=== PATIENT | male | born 1935 | race Caucasian/White ===

== ENCOUNTER 2020-03-28 19:36 | Inpatient (IN) | payer OTHER ==
--- NOTE | 2020-03-28 20:31 | PDOC ---
History of Present Illness - General Chief Complaint: Blood Sugar Problem Stated Complaint: LATHARGIC/ ELEVATED BLOOD SUGAR Time Seen by Provider: 03/28/20 20:30 - History of Present Illness Initial Comments: 03/28/20 20:44 84 M with DM on metformin referred to the ED from Dr. Tai for inpatient admission for concerning of abnormal lab. PCP blooddraw revealed increased WBC, high blood sugar. He endorsed fatigue, pre syncope, SOB, decreased appetite, weight lost 18 lbs over two weeks, nausea, chest pain, abdominal pain, nails changes. . Denies diarrehea, constipation, unilat leg swelling, blood in stool, hematuria. PMH: DM PSH: appendectomy SS: past smokers for 30 years, occasional alcohol, denies drug. PCP: Rosh. JAMES GENERAL/CONSTITUTIONAL: No fever or chills. No weakness. HEAD, EYES, EARS, NOSE AND THROAT: No change in vision. No ear pain or discharge. No sore throat. CARDIOVASCULAR: + chest pain + shortness of breath RESPIRATORY: No cough, wheezing, or hemoptysis. GASTROINTESTINAL: + nausea, no vomiting, diarrhea or constipation. GENITOURINARY: No dysuria, frequency, or change in urination. MUSCULOSKELETAL: No joint or muscle swelling or pain. No neck or back pain. SKIN: No rash NEUROLOGIC: No headache, + vertigo, no loss of consciousness, or change in strength/sensation. ENDOCRINE: No increased thirst. + abnormal weight change HEMATOLOGIC/LYMPHATIC: No anemia, easy bleeding, or history of blood clots. ALLERGIC/IMMUNOLOGIC: No hives or skin allergy. PE GENERAL: Awake, alert, and fully oriented, in no acute distress HEAD: No signs of trauma, normocephalic, atraumatic EYES: PERRLA, EOMI, sclera anicteric, conjunctiva clear ENT: Auricles normal inspection, hearing grossly normal, nares patent, oropharynx clear without exudates. Moist mucosa NECK: Normal ROM, supple, no lymphadenopathy, JVD, or masses LUNGS: No distress, speaks full sentences, clear to auscultation bilaterally HEART: Regular rate and rhythm, normal S1 and S2, no murmurs, rubs or gallops, peripheral pulses normal and equal bilaterally. ABDOMEN: Soft, mild tender on lower quadrants, protrubing but nondistended , normoactive bowel sounds. No guarding, no rebound. No masses EXTREMITIES : Normal inspection, Normal range of motion, no edema. No clubbing or cyanosis. NEUROLOGICAL: Cranial nerves II through XII grossly intact. Normal speech, normal gait, no focal sensorimotor deficits SKIN: Warm, Dry, normal turgor, no rashes or lesions noted. pale. 03/28/20 21:03 Past History - Medical History Allergies/Adverse Reactions: Allergies Allergy/AdvReac Type Severity Reaction Status Date / Time No Known Drug Allergies Allergy Verified 08/23/15 07:58 Home Medications: Ambulatory Orders metFORMIN HCL [Glucophage -] 500 mg PO BID 02/04/12 Aspirin [ASA -] 81 mg PO HS 04/27/14 Cyanocobalamin [Vitamin B12 -] 1 tab PO HS 04/27/14 Acetaminophen [Tylenol] 325 mg PO PRN PRN 04/30/14 Omeprazole [Prilosec] 20 mg PO BID 08/22/15 Anemia: Yes Asthma: No Cancer: No Cardiac Disorders: No CVA: No COPD: No CHF: No Dementia: No Diabetes: Yes (NIDDM) GI Disorders: No Disorders: No HTN: No Hypercholesterolemia: No Liver Disease: No Seizures: No Thyroid Disease: No - Surgical History Abdominal Surgery: Yes (UMBILICAL HERNIA) Appendectomy: Yes Cardiac Surgery: No Cholecystectomy: No Lung Surgery: No Neurologic Surgery: No Orthopedic Surgery: No - Psycho-Social/Smoking History Smoking History: Former smoker Have you smoked in the past 12 months: No If you are a former smoker, when did you quit?: 25 Information on smoking cessation initiated: No - Substance Abuse Hx (Audit-C & DAST Scrn) How often the patient has a drink containing alcohol: Never Score: In Men: 4 or > Positive; In Women: 3 or > Positive: 0 Screen Result (Pos requires Nsg. Audit-10AR): Negative In the last yr the pt used illegal drug/Rx for NonMed reason: No Score: Yes response is considered Positive: 0 Screen Result (Positive result requires Nsg. DAST-10): Negative *Physical Exam - Vital Signs Last Vital Signs Temp Pulse Resp BP Pulse Ox 98.5 F 82 19 153/62 92 L 03/28/20 19:39 03/28/20 19:39 03/28/20 19:39 03/28/20 19:39 03/28/20 19:39 ED Treatment Course - LABORATORY CBC & Chemistry Diagram: 03/28/20 22:06 03/28/20 22:06 Medical Decision Making - Medical Decision Making 03/29/20 01:30 -initially concerning for pancreatic cancer -EKG: normal sinus rhthym, vent rate 79, QTc 454. -repeated labwork which showed elevated WBC with left shift, high Blood sugar, Cr 1.4. -CT scan showed acute sigmoid diverticulis with intramural abscess [id number], no perforation, no obstruction. -consulted Gen surg Dr. Reyes. Plan is NPO, fluid, antibiotic. -MBMD sent. Decision to admit sent. 03/29/20 01:34 03/29/20 04:[address] Pasrtana. Discharge - Discharge Information Problems reviewed: Yes Clinical Impression/Diagnosis: Diverticulitis Condition: Good - Admission Yes - Follow up/Referral Referrals: Rosalino Norris MD [Primary Care Provider] - - Patient Discharge Instructions - Post Discharge Activity
[2020-03-28 21:55] LABS: URINE APPEARANCE CLEAR; URINE BILIRUBIN NEGATIVE (NEGATIVE); URINE COLOR YELLOW; URINE GLUCOSE (UA) 3+ (NEGATIVE); URINE KETONE TRACE (NEGATIVE); URINE LEUK ESTERASE NEGATIVE (NEGATIVE); URINE NITRITE NEGATIVE (NEGATIVE); URINE PROTEIN TRACE (NEGATIVE); URINE UROBILINOGEN 0.2 mg/dL (0.2-1.0)
--- NOTE | 2020-03-28 22:06 | PDOC ---
Documentation entered by Jewel Garcia SCRIBE, acting as scribe for Kareem Willams MD. Kareem Willams MD: This documentation has been prepared by the Radha lucas Xhesika, SCRIBE, under my direction and personally reviewed by me in its entirety. I confirm that the documentation accurately reflects all work, treatment, procedures, and medical decision making performed by me. Attending Attestation - Resident Resident Name: Girish Gilmore - ED Attending Attestation I have performed the following: I have examined & evaluated the patient, The case was reviewed & discussed with the resident, I agree w/resident's findings & plan, Exceptions are as noted - HPI HPI: 03/28/20 20:53 The patient is a 84y/o M with a pmh of DM (on metformin) who presents to the ED sent by Dr. Norris for admission for abnormal lab. Pt had outpatient lab work done, which showed an increased WBC and high blood sugar. Pt reports feeling fatigued, nausea, abdominal pain, chest pain and SOB. Pt reports decreased appetite and has lost 18 lbs over two weeks. Pt spoke with his PMD Dr. Norris, who instructed him to come to hospital for admission. The patient denies headache and dizziness. Denies fever, chills, cough, vomiting, diarrhea and constipation. Denies dysuria, frequency, urgency and hematuria. Allergies:NKDA PCP: Rito Gaines - Physicial Exam PE: 03/28/20 22:06 See resident exam - Medical Decision Making 03/28/20 22:07 84 M with weakness, chest pain, abnormal labwork. - Labs - CXR - Admit CT shows sigmoid abscess Surgery consulted Discharge - Discharge Information Problems reviewed: Yes Clinical Impression/Diagnosis: Diverticulitis Condition: Improved Disposition: HOME - Follow up/Referral - Patient Discharge Instructions - Post Discharge Activity
[2020-03-28 22:25] LABS: BASO % 0.6 % (0-2.0); EOS % 0.6 % (0-4.5); HEMATOCRIT 34.1 % (35.4-49); HEMOGLOBIN 10.9 GM/dL (11.7-16.9); MCHC 32.1 g/dl (32.0-35.9); MEAN CELL VOLUME 93.6 fl (80-96); MEAN PLT VOLUME 10.3 fl (7.5-11.1); MONO % 4.3 % (3.8-10.2); NEUT % 83.5 % (42.8-82.8); PLATELET COUNT 368 K/MM3 (134-434); RBC 3.64 M/mm3 (4.00-5.60); RDW 14.1 % (11.9-15.9); WHITE BLOOD COUNT 12.1 K/mm3 (4.0-10.0)
[2020-03-28 22:36] LABS: INR 1.04 (0.83-1.09); PROTHROMBIN TIME (PATIENT) 12.3 SEC (9.7-13.0)
[2020-03-28 22:39] LABS: ACTIVATED PTT 27.6 SECONDS (25.2-36.5)
[2020-03-28 22:55] LABS: CREATININE 1.4 mg/dL (0.55-1.3)
[2020-03-28 22:56] LABS: ALBUMIN 2.8 g/dl (3.4-5.0); BILIRUBIN,DIRECT 0.2 mg/dL (0.0-0.2); BILIRUBIN,TOTAL 0.6 mg/dL (0.2-1); BLOOD UREA NITROGEN 20.8 mg/dL (7-18); CALCIUM 8.7 mg/dL (8.5-10.1); MAGNESIUM 2.3 mg/dL (1.8-2.4); PHOSPHOROUS 2.1 mg/dL (2.5-4.9); POTASSIUM 4.6 mmol/L (3.5-5.1)
[2020-03-28] MEDS ORDERED: INSULIN REGULAR HUMAN 100 UNITS/ML *VIAL IVPUSH ONE (23:20)
[2020-03-28] MEDS ORDERED: LACTATED RINGERS SOLUTION 1000 ML INFUS.BAG IV ONE (23:30)
[2020-03-29] MEDS ORDERED: INSULIN REGULAR HUMAN 100 UNITS/ML *VIAL SQ ONE (00:26)
[2020-03-29] MEDS: INSULIN SLIDING SCALE (NOVOLOG) 1 VIAL SQ SCH ×5 (00:38→16:51)
[2020-03-29] MEDS ORDERED: PIPERACILLIN/TAZOB 4.5 GM 4.5 GM in DEXTROSE 5%-WATER 100 ML IVPB ONE (01:04)
[2020-03-29] MEDS ORDERED: PIPERACILLIN/TAZOB 4.5 GM 4.5 GM/100 ML BAG IVPB ONE (01:19)
--- NOTE | 2020-03-29 02:43 | PN ---
Teaching Attending Note Name of Resident: Melida Francis ATTENDING PHYSICIAN STATEMENT I saw and evaluated the patient. I reviewed the resident's note and discussed the case with the resident. I agree with the resident's findings and plan as documented. SUBJECTIVE: 84yoM with history of T2DM who was referred to the ED for evaluation of leukocytosis and hyperglycemia. Patient reports for the past two weeks he has had abdominal pain, poor oral intake, and fatigue. Believes he has lost about 20lb during that time but denies fever, chills, vomiting, diarrhea. He was evaluated by his PCP and found on labs to have leukocytosis and hyperglycemia and was referred to the ED. Denies prior history of diverticulitis. Patient was afebrile and hemodynamically stable in the ED. Labs notable for WBC 12.1, glucose 473. CT abd/pelvis showed acute sigmoid diverticulitis with intramural abscess. ED consulted surgery, Dr. Reyes, who recommended maintaining patient NPO, start antibiotics. Patient received Zosyn and is admitted for further management. ROS: (+) weight loss, poor appetite, abd pain, fatigue, nausea (-) fever, chills, cough, constipation, melena, hematochezia, dizziness, chest pain OBJECTIVE: Vital Signs - 24 hr 03/28/20 03/28/20 19:39 23:55 Temperature 98.5 F Pulse Rate 82 Pulse Rate [ 67 Left Radial] Respiratory 19 16 Rate Blood Pressure 153/62 Blood Pressure 145/56 L [Left Arm] O2 Sat by Pulse 92 L 97 Oximetry (%) EXAM Gen: Tired appearing elderly man in no acute distress HEENT: anicteric sclera CV: RRR, no MRG appreciated Resp: Occasional expiratory wheeze in upper lobes, no rales/rhonchi appreciated. Unlabored breathing Abd: Soft, mildly distended. Tender to palpation lower quadrants without rebound or guarding. Positive bowel sounds Ext: No edema Neuro: CN II-XII grossly intact. AOx3. Laboratory Results - last 24 hr 03/28/20 03/28/20 03/28/20 21:20 22:06 22:06 WBC 12.1 H RBC 3.64 L Hgb 10.9 L Hct 34.1 L MCV 93.6 MCH 30.0 MCHC 32.1 RDW 14.1 Plt Count 368 MPV 10.3 Absolute Neuts (auto) 10.1 H Neutrophils % 83.5 H Lymphocytes % 11.0 Monocytes % 4.3 Eosinophils % 0.6 Basophils % 0.6 Nucleated RBC % 0 PT with INR 12.30 INR 1.04 PTT (Actin FS) 27.6 Sodium Potassium Chloride Carbon Dioxide Anion Gap BUN Creatinine Est GFR (CKD-EPI)AfAm Est GFR (CKD-EPI)NonAf POC Glucometer Random Glucose Calcium Phosphorus Magnesium Total Bilirubin Direct Bilirubin AST ALT Alkaline Phosphatase Total Protein Albumin Lipase Urine Color Yellow Urine Appearance Clear Urine pH 5.0 Ur Specific [place] 1.036 H Urine Protein Trace Urine Glucose (UA) 3+ H Urine Ketones Trace H Urine Blood Negative Urine Nitrite Negative Urine Bilirubin Negative Urine Urobilinogen 0.2 Ur Leukocyte Esterase Negative 03/28/20 03/29/20 22:06 01:28 WBC RBC Hgb Hct MCV MCH MCHC RDW Plt Count MPV Absolute Neuts (auto) Neutrophils % Lymphocytes % Monocytes % Eosinophils % Basophils % Nucleated RBC % PT with INR INR PTT (Actin FS) Sodium 131 L Potassium 4.6 Chloride 96 L Carbon Dioxide 27 Anion Gap 8 BUN 20.8 H Creatinine 1.4 H Est GFR (CKD-EPI)AfAm 53.09 Est GFR (CKD-EPI)NonAf 45.81 POC Glucometer 383 Random Glucose 473 H* Calcium 8.7 Phosphorus 2.1 L Magnesium 2.3 Total Bilirubin 0.6 Direct Bilirubin 0.2 AST 14 L ALT 30 Alkaline Phosphatase 106 Total Protein 8.0 Albumin 2.8 L Lipase 131 Urine Color Urine Appearance Urine pH Ur Specific [place] Urine Protein Urine Glucose (UA) Urine Ketones Urine Blood Urine Nitrite Urine Bilirubin Urine Urobilinogen Ur Leukocyte Esterase Imaging reviewed in chart ASSESSMENT AND PLAN: 84yoM with history of T2DM who was referred to the ED for evaluation of leukocytosis and hyperglycemia in setting of 2 weeks of abdominal pain and weight loss, found to have acute diverticulitis with intramural abscess. Acute sigmoid diverticulitis with intramural abscess Likely cause of his abd pain, anorexia, and weight loss No evidence of perforation on imaging; no peritoneal signs on exam - continue Zosyn - NPO - IVF overnight - surgical consult appreciated - IR consult in AM for possible drainage Hyperglycemia Reportedly on metformin but unable to complete med rec with patient A1c was reportedly elevated as outpatient as well - POC glucose q6h while NPO - ISS Left adrenal mass Incidental finding on CT - outpatient f/u Emphysematous changes No diagnosis of COPD, occasional wheeze on exam but not in any respiratory distress CT chest shows emphysematous changes Has significant tobacco use history - outpatient f/u - consider Duoneb if needed DVT ppx: SCD pending possible procedure
[2020-03-29] MEDS ORDERED: ALBUTEROL SO4 HFA INHALER IH PRN (03:29)
[2020-03-29] MEDS ORDERED: NAPH,MB-DB/K PH,MBDB POWDER PACKET PO ONE (03:31)
[2020-03-29] MEDS ORDERED: NAPH,MB-DB/K PH,MBDB POWDER PACKET ONE (03:53)
--- NOTE | 2020-03-29 03:56 | HP ---
CHIEF COMPLAINT: I feel sick PCP: Dr. Tai HISTORY OF PRESENT ILLNESS: 84yo M with PMHx of DM, ?GERD, and ?insomnia who presented form his PCP's office for hyperglycemia, leukocytosis, and 20lbs weight loss in 2 weeks. Patient said his symptoms stared two weeks ago where he started loosing his appetite. He also started experiencing some dizziness and repeated falls without hitting his head and without LOC, but during one of his falls he hit his L chest which remains mildly tender from incident. 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 He denied headaches, CP other than from his fall, SOB, dysuria, urinary frequency, nausea, vomiting. Had his last BM "day before yesterday", denied any diarrhea or constipation, and had his last colonoscopy ~2-3 years ago. He is unsure of his medications as his and son help him with them. ER course was notable for: (1) WBC 12.1, phos 2.1, glucose 473, UA 3+ glucose and trace ketones (2) CT chest showed emphystematous changes in upper lobes greater than lower, atelectatic changes at the Right lung base, and pleural thickening at the right lung base posteriorly. (3) CT abdomen/pelvis showed acute sigmoid diverticulitis, a possible intramural abscess, fatty atrophy of pancreas, and a 1.35cm Left adrenal mass that warrants further f/u. 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 Home: lives with , son, and grandson Allergies No Known Drug Allergies Allergy (Verified 08/23/15 07:58) HOME MEDICATIONS: Home Medications Medication Instructions Recorded metFORMIN HCL [Glucophage -] 500 mg PO BID 02/04/12 Aspirin [ASA -] 81 mg PO HS 04/27/14 Cyanocobalamin [Vitamin B12 -] 1 tab PO HS 04/27/14 Acetaminophen [Tylenol] 325 mg PO PRN PRN 04/30/14 Omeprazole [Prilosec] 20 mg PO BID 08/22/15 patient unsure of his home meds had the following with him along with his belongings: - amitriptyline 10mg HS - Gabapentin 300mg BID - 120 tabs of percocet REVIEW OF SYSTEMS as per HPI PHYSICAL EXAMINATION Vital Signs - 24 hr 03/28/20 03/28/20 03/29/20 19:39 23:55 02:30 Temperature 98.5 F Pulse Rate 82 Pulse Rate [ 67 69 Left Radial] Respiratory 19 16 18 Rate Blood Pressure 153/62 Blood Pressure 145/56 L 139/57 L [Left Arm] O2 Sat by Pulse 92 L 97 97 Oximetry (%) GENERAL: Nepalese M, well but mildly tired appearing, lying flat and comfortably in ED bed, fully oriented, in no acute distress. HEAD: Normal with no signs of trauma. EYES: extraocular movements intact NECK: no lymphadenopathy appreciated LUNGS: Mild expiratory wheezing in RUL on anterior and posterior chest, remainder clear to auscultation HEART: RRR, S1 and S2 without murmur ABDOMEN: Soft, tender to deep palpation in peliv area, not distended, hypoactive bowel sounds EXTREMITIES: 2+ radial pulses, 1+ dorsalis pedis pulses, hands and feet cold to touch, No peripheral edema NEUROLOGICAL: Cranial nerves II-XII grossly intact. Normal speech with symmetri dianne facial movements PSYCHIATRIC: Cooperative and interactive. Good eye contact. Appropriate mood and affect. SKIN: no rashes or lesions noted Abnormal Lab Results 03/28/20 03/28/20 03/28/20 21:20 22:06 22:06 WBC 12.1 H RBC 3.64 L Hgb 10.9 L Hct 34.1 L Absolute Neuts (auto) 10.1 H Neutrophils % 83.5 H Sodium 131 L Chloride 96 L BUN 20.8 H Creatinine 1.4 H Random Glucose 473 H* Phosphorus 2.1 L AST 14 L Albumin 2.8 L Ur Specific [place] 1.036 H Urine Glucose (UA) 3+ H Urine Ketones Trace H ASSESSMENT/PLAN: 84yo M with PMHx of DM, ?GERD, and ?insomnia who presented form his PCP's office for hyperglycemia, leukocytosis, and 20lbs weight loss in 2 weeks. ED workup was remarkable for WBC 12.1, phos 2.1, glucose 473, UA 3+ glucose and trace ketones. CT chest showed emphystematous changes in upper lobes greater than lower, atelectatic changes at the Right lung base, and pleural thickening at the right lung base posteriorly. CT abdomen/pelvis showed acute sigmoid diverticulitis, a possible intramural abscess, fatty atrophy of pancreas, and a 1.35cm Left adrenal mass that warrants further f/u. Patient was admitted for acute sigmoid diverticulitis in setting of hyperglycemia and leukocytosis. COVID pending. *Patient's meds need to be reconciled with [facility] pharmacy in AM. #acute sigmoid diverticulitis - surgery consulted: recommended NPO, IVFs, and abx - continue zosyn - ID consulted #hyperglycemia in setting of DM - BGM Q6h and ACHS - ISS - holding any home DM meds - continue monitoring K - replete if downtrending #frequent recent falls - fall risk precautions ordered - orthostatics ordered #expiratory wheezing on physical exam - albuterol PRN PPX - DVT: SCDs #FEN - 75cc/h NS - replete lytes PRN - repleted phos, continue monitoring K - NPO #Dispo: medSurg Family Medical History Family History: As Documented Visit type - Medication Review Med list reviewed for High Risk Meds patients 65 and older: No - Emergency Visit Emergency Visit: Yes Care time: The patient presented to the Emergency Department on the above date a nd was hospitalized for further evaluation of their emergent condition. - New Patient This patient is new to me today: Yes Date on this admission: 03/29/20 - Critical Care Critical Care patient: No ATTENDING PHYSICIAN STATEMENT I saw and evaluated the patient. I reviewed the resident's note and discussed the case with the resident. I agree with the resident's findings and plan as documented. SUBJECTIVE: OBJECTIVE: ASSESSMENT AND PLAN:
[2020-03-29] MEDS ORDERED: SODIUM CHLORIDE 1,000 ML IV SCH (04:00)
[2020-03-29 06:15] LABS: BASO % 0.7 % (0-2.0); HEMATOCRIT 30.7 % (35.4-49); HEMOGLOBIN 10.1 GM/dL (11.7-16.9); LYMPH % 12.8 % (8-40); MCH 30.4 pg (25.7-33.7); MEAN PLT VOLUME 9.7 fl (7.5-11.1); MONO % 5.9 % (3.8-10.2); NEUT % 79.6 % (42.8-82.8); PLATELET COUNT 331 K/MM3 (134-434); RBC 3.33 M/mm3 (4.00-5.60); RDW 14.1 % (11.9-15.9); WHITE BLOOD COUNT 11.1 K/mm3 (4.0-10.0)
[2020-03-29 06:44] LABS: BILIRUBIN,TOTAL 0.6 mg/dL (0.2-1); BLOOD UREA NITROGEN 17.8 mg/dL (7-18); CALCIUM 8.5 mg/dL (8.5-10.1); CREATININE 1.1 mg/dL (0.55-1.3); MAGNESIUM 2.1 mg/dL (1.8-2.4); PHOSPHOROUS 2.4 mg/dL (2.5-4.9); POTASSIUM 3.9 mmol/L (3.5-5.1); TOT PROT 6.7 g/dl (6.4-8.2)
[2020-03-29] MEDS ORDERED: INSULIN SLIDING SCALE (NOVOLOG) 1 VIAL SQ SCH ×2 (07:00→16:39)
--- NOTE | 2020-03-29 09:01 | CONSULT ---
<Mario Argueta P - Last Filed: 03/29/20 10:27> - Consultation REQUESTING PROVIDER: General Surgery - Kareem Reyes CONSULT REQUEST: We have been asked to surgically evaluate this patient for acute sigmoid diverticulitis. PCP: Dr. Tai Hospitalist: HPI: Called to [facility] 84 M with PMHx as noted below. Presents to [facility] ED from Dr. Norris's office (PCP) in-patient admission for concerning of abnormal lab. PCP blood draw revealed increased WBC, high blood sugar. Patient endorses fatigue and feeling SOB. Admits to decreased appetite resulting in 20lb weight loss over the past two weeks. Because of his poor PO intake, he states he is getting dizzy (frequently) and falling (negative LOC or head trauma). States his last solid BM was Wednesday (normal appearing). Per patient, last Colonoscopy was 2-3 years ago (no abnormal findings). He denies n/v/f/c, CP, palpitations or PARRISH. Denies hematuria, melena or hematochazia. Denies family history of colon cancer. Denies dysuria, frequency, urgency, hesitancy, hematuria, flank pain, genital pain. Denies bladder or bowel incontinence. Denies trauma, recent travel or sick contacts. While in the ED he had the following imaging studies: Cx CT: emphystematous changes UL > LL, atelectatic changes at the Right lung base, and pleural thickening at the right lung base posteriorly A/P CT: acute sigmoid diverticulitis, a possible intramural abscess, fatty atrophy of pancreas, and a 1.35cm Left adrenal mass PMHx: DM, GERD, Lumbar Spondylosis, Lumbar DDD, Lumbar Radiculopathy, Chronic LBP PSHx: Appendectomy. Hernia repair. L5/S1 Epidural Injection Home Meds Amitriptyline 10 mg PO DAILY Gabapentin 300 mg PO BID Glipizide 5 mg PO DAILY Hydrocodone/Acetaminophen 10 - 325 mg PO QID Sitagliptin Phos/Metformin HCl 1 tab PO DAILY Allergies: NKDA ROS: CONSTITUTIONAL: Absent: chills, diaphoresis, generalized weakness, malaise, + loss of appetite, + weight change CARDIOVASCULAR: Absent: syncope, palpitations, irregular heart rate, + lightheadedness, peripheral edema RESPIRATORY: Absent: cough, wheezing, stridor, hemoptysis GASTROINTESTINAL: SEE HPI GENITOURINARY: Absent: SEE HPI MUSCULOSKELETAL: Absent: myalgia, arthralgia, joint swelling, + back pain (chronic), neck pain SKIN: Absent: rash, itching, pallor HEMATOLOGIC/IMMUNOLOGIC: Absent: easy bleeding, easy bruising, lymphadenopathy NEUROLOGIC: Absent: headache, focal weakness, paresthesias, dizziness, + unsteady gait, seizure, mental status changes PSYCHIATRIC: Absent: anxiety, depression, suicidal or homicidal ideation, hallucinations. PHYSICAL EXAM: GENERAL: A&O. NAD HEAD: NC. AT. EYES: PERRL, sclera anicteric, conjunctiva clear. NECK: Normal ROM, supple without lymphadenopathy, JVD, or masses. LUNGS: Unlabored respirations. HEART: RRR ABD: MUSCULOSKELETAL: No CVA tenderness. UE: 2+ pulses, warm, well-perfused. No cyanosis. Cap refill <2 seconds. No peripheral edema. LE: 2+ pulses, warm, well-perfused. No calf tenderness. No peripheral edema. NEUROLOGICAL: Normal speech, gait not observed. PSYCH: Cooperative. Good eye contact. Appropriate mood and affect. SKIN: Warm, dry, normal turgor, no rashes or lesions noted. Last Vital Signs Temp Pulse Resp BP Pulse Ox 97.9 F 72 16 128/47 L 91 L 03/29/20 05:40 03/29/20 05:40 03/29/20 05:40 03/29/20 05:40 03/29/20 05:40 CBC, BMP 03/29/20 05:50 03/29/20 05:50 Hepatic Panel Total Bilirubin 0.6 mg/dL (0.2-1) 03/29/20 05:50 Direct Bilirubin 0.2 mg/dL (0.0-0.2) 03/28/20 22:06 AST 9 U/L (15-37) L 03/29/20 05:50 ALT 21 U/L (13-61) 03/29/20 05:50 Alkaline Phosphatase 74 U/L (45-117) 03/29/20 05:50 Albumin 3.0 g/dl (3.4-5.0) L 03/29/20 05:50 Urine Test Results Urine Color Yellow 03/28/20 21:20 Urine Appearance Clear 03/28/20 21:20 Urine pH 5.0 (5.0-8.0) 03/28/20 21:20 Ur Specific [place] 1.036 (1.010-1.035) H 03/28/20 21:20 Urine Protein Trace (NEGATIVE) 03/28/20 21:20 Urine Glucose (UA) 3+ (NEGATIVE) H 03/28/20 21:20 Urine Ketones Trace (NEGATIVE) H 03/28/20 21:20 Urine Blood Negative (NEGATIVE) 03/28/20 21:20 Urine Nitrite Negative (NEGATIVE) 03/28/20 21:20 Urine Bilirubin Negative (NEGATIVE) 03/28/20 21:20 Ur Leukocyte Esterase Negative (NEGATIVE) 03/28/20 21:20 INR, PTT INR 1.04 (0.83-1.09) 03/28/20 22:06 Serology Test 03/29/20 02:20 COVID-19 (LINDA) Pending A/P: 84 yo male presents with LLQ abd pain, loss of appetite and 20lb weight loss over 2 weeks. C/o LLQ abd pain. In ED Labs: leukocytosis and hyperglycemic. Cx CT: emphystematous changes UL > LL, atelectatic changes at the Right lung base, and pleural thickening at the right lung base posteriorly. ABD/Pelvic CT: acute sigmoid diverticulitis, a ? intramural abscess, fatty atrophy of pancreas, and a 1.35cm Left adrenal mass. Poor PO intake. Dehydration. -NPO -IVF -GI PPx -DVT PPx -Covid pending; Strict Isolation precuation -Tight glycemic control; ISS -IV ABX -Replete elytes prn -GI consult pending -Endocrine Consult ([facility]) notified: Left Adrenal mass measuring 1.35cm found on CT scan...incidentaloma. Need to determine functional vs. non-functional Above plan discussed with Dr. Reyes and agrees. Problem List - Problems (1) Abscess of sigmoid colon due to diverticulitis Code(s): K57.20 - DVTRCLI OF LG INT W PERFORATION AND ABSCESS W/O BLEEDING (2) Left adrenal mass Code(s): E27.8 - OTHER SPECIFIED DISORDERS OF ADRENAL GLAND (3) Diabetes Code(s): E11.9 - TYPE 2 DIABETES MELLITUS WITHOUT COMPLICATIONS (4) Lumbar spondylosis Code(s): M47.816 - SPONDYLOSIS W/O MYELOPATHY OR RADICULOPATHY, LUMBAR REGION (5) Lumbar degenerative disc disease Code(s): M51.36 - OTHER INTERVERTEBRAL DISC DEGENERATION, LUMBAR REGION (6) Chronic low back pain Code(s): M54.5 - LOW BACK PAIN; G89.29 - OTHER CHRONIC PAIN Visit type - Case Type Case Type: ED Admission - Emergency Emergency Visit: Yes ED Registration Date: 03/29/20 Care time: The patient presented to the Emergency Department on the above date and was hospitalized for further evaluation of their emergent condition. - New patient This patient is new to me today: Yes Date on this admission: 03/29/20 <Kareem Reyes - Last Filed: 03/29/20 10:41> - Consultation Attending Surgeon: I personally saw and examined the patient. My examination reveals a patient with abdominal pain. I discussed the case with the surgical PA and agree with their findings and plan of care with any exceptions as noted. ~ Kareem Reyes MD, FACS
--- NOTE | 2020-03-29 09:21 | HOSP ---
Subjective - Review of Symptoms General: Yes: Fatigue, Malaise, Appetite HEENT: Yes: Other Pulmonary: Yes: Other Gastrointestinal: Yes: Nausea, Abdominal Pain Physical Examination Vital Signs: Vital Signs Temperature 97.9 F 03/29/20 05:40 Pulse Rate 72 03/29/20 05:40 Respiratory Rate 16 03/29/20 05:40 Blood Pressure 128/47 L 03/29/20 05:40 O2 Sat by Pulse Oximetry (%) 91 L 03/29/20 05:40 Constitutional: Yes: Calm, Mild Distress Eyes: Yes: Conjunctiva Clear HENT: Yes: WNL, Atraumatic Neck: Yes: Supple Cardiovascular: Yes: Regular Rate and Rhythm Respiratory: Yes: Regular, CTA Bilaterally Gastrointestinal: Yes: Distention, Hypoactive Bowel Sounds Labs: CBC, BMP 03/29/20 05:50 03/29/20 05:50 Hospitalist Encounter Assessment: Patient is an 84 year old male with a significant past medical history of diabetes, GERD, and insomnia. He presents to the ED on 03/29/2020 from his PCP's office for elevated blood sugar (400s with normal anion gap), leukocytosis and weight loss. Patient reports feeling generally weak and overal fatigued for a few weeks.He had no appetite and reports feeling lightheaded. He had falls at home. Patient is usually active and in good health overall. He denied headaches, or chest pain, no shortness of breath. In the ED his wBC was elevated at 12.1, glucose in 400s, UA with glucose and ketones imaging: CT chest with contrast 03/28/2020: extensive bilateral upper lobe predominant paraseptal an centriobular emphysematous changes. patchy area of groundglass opacifiation. CT abdomen/pelvis: acute sigmoid diverticulitis with an associated peripherally enhancing fluid component that may represent an abscess formation. no evidence of perforation. fatty atrophy of pancreas, and a 1.35cm Left adrenal mass --------- Acute sigmoid diverticulitis with enhancing fluid, possible abscess formation On Ceftriaxone and Flagyl NPO except for meds IVF hydration, NS 75 Surgery evaluation for abscess patchy goundglass opacifications On supplemental oxygen PRN will consult pulmonary Diabetes patient presented with hyperglycemia in the 400s, normal anion gap start on novolog SS and monitor bgms while NPO hga1c pending for am. GERD protonox iv push daily Adrenal mass consulted placed by surgery for Dr. Peters FEN: NS @ 75cc hr monitor electrolytes daily NPO except for meds DVT prophy: heparin bid
[2020-03-29] MEDS ORDERED: PIPERACILLIN/TAZOB 3.375 GM 3.375 GM in DEXTROSE 5%-WATER - 50 ML IVPB SCH (10:00)
[2020-03-29] MEDS ORDERED: PT OWN MED DRAWER 7, Y5N ONE (10:09)
[2020-03-29] MEDS ORDERED: PIPERACILLIN/TAZOB 3.375 GM 3.375 GM/50 ML BAG IVPB ONE (10:10)
--- NOTE | 2020-03-29 10:19 | PN ---
Progress Note (short form) - Note Progress Note: ID consult dictated imp/reccd 84 yo male admitted from home with 2 weeks of weight loss and abdominal pain ct scan with sigmoid diverticuitis and adrenal mass(no official read yet) no fevers or chills no recent admission no recent antibiotics PMD dr merrill carballo/jaren crp GI evaluation ?IR drainage of the abscess Problem List - Problems (1) Abscess of sigmoid colon due to diverticulitis Code(s): K57.20 - DVTRCLI OF LG INT W PERFORATION AND ABSCESS W/O BLEEDING (2) Diverticulitis Code(s): K57.92 - DVTRCLI OF INTEST, PART UNSP, W/O PERF OR ABSCESS W/O BLEED (3) Left adrenal mass Code(s): E27.8 - OTHER SPECIFIED DISORDERS OF ADRENAL GLAND
[2020-03-29] MEDS ORDERED: CEFTRIAXONE 2 GM/100 ML BAG IVPB ONE (10:35)
[2020-03-29] MEDS: CEFTRIAXONE 2 GM in DEXTROSE 5%-WATER 100 ML IVPB SCH (10:38)
--- NOTE | 2020-03-29 10:49 | EKG ---
Test Reason : Blood Pressure : / mmHG Vent. Rate : 079 BPM Atrial Rate : 079 BPM P-R Int : 170 ms QRS Dur : 090 ms QT Int : 396 ms P-R-T Axes : 085 -11 052 degrees QTc Int : 454 ms NORMAL SINUS RHYTHM WHEN COMPARED WITH ECG OF 28-JAN-2007 16:15, NO SIGNIFICANT CHANGE WAS FOUND Confirmed by YASMIN MAI MD ([id number]) on 03/29/2020 10:48:38 AM Referred By: Confirmed By:YASMIN MAI MD
--- NOTE | 2020-03-29 11:17 | CONS ---
DATE OF CONSULTATION: CHIEF COMPLAINT/HISTORY OF PRESENT ILLNESS: This is an 84-year-old man who is admitted from home. About 2 weeks ago he developed abdominal discomfort, and he lost his appetite. He has had a significant weight loss of about 20 pounds. He reports that when he stood up he felt dizzy. Several days ago he had an episode where he fell down. There was no loss of consciousness. He hit his left chest. His son was home and was able to help him up. He did not seek any medical care. Two days ago he went and saw his PMD. He has since not had any fevers or chills. There is no history of any night sweats. He has not had any nausea or vomiting. He denies any diarrhea. His last bowel movement was 2 days ago. He denies any blood in his stools. He has been urinating regularly. He reports he has had a colonoscopy with Dr. Mon several years ago. He states he has been very sedentary since COVID started, but he has essentially been at home. There is no history of any recent travel. PAST MEDICAL HISTORY: Notable for diabetes. PAST SURGICAL HISTORY: Appendectomy and hernia repair. FAMILY HISTORY: Unremarkable. He says his family is very healthy. No illnesses. SOCIAL HISTORY: He is originally from [place]. He smoked until 25 years ago. He drinks a glass of wine occasionally. No substance use. He lives at home with his , and his son and grandson are upstairs. 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 ALLERGIES: No known drug allergies. MEDICATIONS: His current medications include Janumet, Percocet, glipizide, amitriptyline, and gabapentin. REVIEW OF SYSTEMS: As per HPI. He denies any head trauma. He denies any loss of consciousness, chest pain, shortness of breath, cough. Otherwise per HPI. PHYSICAL EXAMINATION: General: He is awake and alert. Vital Signs: His temperature is 97.9. Pulse is 72, blood pressure 128/47, respiratory rate 16. He is saturating 91% on room air. HEENT: Head is normocephalic. His eyes are anicteric. Neck: Supple. Lungs: Clear to auscultation. Heart: Regular rate and rhythm. Abdomen: Soft. He has minimal tenderness to deep palpation in his left lower quadrant. Extremities: Without edema. Skin: He has no rash. LABORATORY: White count on admission was 12.1, today is 11.1. Hemoglobin 10.1. Platelets are 331. His BUN is 17 and creatinine 1.1. LFTs are normal. Creatinine was 1.4 on admission. Glucose was 473 on admission. Urinalysis has 3+ glucose, trace ketones. COVID serology is pending. CAT scan of the chest, abdomen, and pelvis was done, results of which are pending. Apparently the preliminary report by the overnight radiologist shows emphysematous changes in his lungs, atelectatic changes at the right base. He has sigmoid diverticulitis with a possible intramural abscess and a 1.35-cm left adrenal mass. SUMMARY: This is an elderly man admitted from home with weight loss and abdominal discomfort, who has evidence of acute sigmoid diverticulitis, unclear if he has an abscess as well, and a left adrenal mass. No history of recent admissions, no recent at antibiotics. He is afebrile, with white count of 11,000. Would treat him with ceftriaxone and Flagyl at this time. Would obtain a CRP so we can trend it. Would await GI evaluation. He has just been seen by Surgery, and if indeed he has an abscess, would consider IR drainage. Further recommendations to follow. ARMANDO CHANEL M.D. [id number]
--- NOTE | 2020-03-29 13:48 | CON.GI ---
Consult Consult Specialty:: GI: For Dr. Mon / [place]. Dr. Estes resumes care 03/30 Referred by:: Hospitalist Nestor Reason for Consultation:: Intramural sigmoid abscess - History of Present Illness Chief Complaint: Weakness, diminished appetite, hyperglycemia History of Present Illness: 84M admitted through [facility] for evaluation of progressive weakness, diminished appetite. has noticed some lower abdominal discomfort as well [facility], Mr. Ahumada was noted hyperglycemic with leukocytosis. CT scan of the A/P revealed sigmoid diverticulitis with a suspected 2.3cm abscess (prelim described intramural, while official read did not differentiate), enlarged prostate, thickened bladder wall, fatty atrophy of the pancreas and an enlarged adrenal nodule. Mr. Ahumada denies nausea, vomiting, dysphagia, odynophagia, rectal bleeding, change in bowel habits. In review of the [employer] system, he had a colonoscopy in [address] Long Mon revealing severe sigmoid divertiulosis, mild diverticulosis throughout the remainder of the colon and two diminutive polyps in the rectum (pathology = hyperplastic polyps). Dr. Mon performed EGD as well in 2013 that revealed gastric erosions and duodenitis (path = H. Pylori positive. Unclear if treated as I do not have office records to review.) Mr. Ahumada believes that he had a colonoscopy with Dr. Mon 2-3 years ago and that it was performed in the office. I do not have these records for review. There is no family history of colorectal cancer or other GI malignancy. 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 Place of : Other ([place]) History of Recent Travel: No Home Medications - Allergies Allergies/Adverse Reactions: Allergies Allergy/AdvReac Type Severity Reaction Status Date / Time No Known Drug Allergies Allergy Verified 08/23/15 07:58 - Home Medications Home Medications: Ambulatory Orders Amitriptyline HCl [Elavil -] 10 mg PO DAILY 03/29/20 Gabapentin 300 mg PO BID 03/29/20 Glipizide [Glipizide ER] 5 mg PO DAILY 03/29/20 Hydrocodone/Acetaminophen [[place] 10-325 Tablet] 10 - 325 mg PO QID 03/29/20 Sitagliptin Phos/Metformin HCl [Janumet Xr 100-1,000 mg Tablet] 1 tab PO DAILY 03/29/20 Family Medical History Other Family History: Mother: : 70's "Old age". Father: : 70's "old age". 5 brother, 7 sisters: all except 1 sister. He does not recall causes of . 2 sons, 1 daughter: healthy. No family history of colorectal cancer or other GI malignancy Review of Systems - Review of Systems Constitutional: reports: Loss of Appetite, Weakness Cardiovascular: denies: Chest Pain, Edema Respiratory: denies: Cough Gastrointestinal: reports: Abdominal Pain. denies: Constipation, Diarrhea, Nausea, Rectal Bleeding, Vomiting, Vomiting Blood Genitourinary: reports: Frequency (Chronic) Physical Exam-GI Vital Signs: Vital Signs @ 1330 during my exam Temp: 98.8 P: 77 R: 16 BP: 130/59 O2: 97% on RA Temperature 98.6 F 03/29/20 08:40 Pulse Rate 67 03/29/20 10:51 Respiratory Rate 16 03/29/20 08:40 Blood Pressure 126/58 L 03/29/20 10:51 O2 Sat by Pulse Oximetry (%) 98 03/29/20 08:40 Constitutional: Yes: Calm Eyes: No: Sclera Icterus Cardiovascular: Yes: Regular Rate and Rhythm. No: Murmur Respiratory: Yes: CTA Bilaterally Gastrointestinal Inspection: Yes: Scars (periumbilical scar). No: Distention ...Auscultate: Yes: Normoactive Bowel Sounds ...Palpate: Yes: Soft, Tenderness (suprapubic and LLQ tenderness to palpation) ...Percussion: No: Tympanitic Edema: No (No LE edema) Neurological: Yes: Alert Labs: CBC, BMP 03/29/20 05:50 03/29/20 05:50 INR, PTT INR 1.04 (0.83-1.09) 03/28/20 22:06 Hepatic Panel Total Bilirubin 0.6 mg/dL (0.2-1) 03/29/20 05:50 Direct Bilirubin 0.2 mg/dL (0.0-0.2) 03/28/20 22:06 AST 9 U/L (15-37) L 03/29/20 05:50 ALT 21 U/L (13-61) 03/29/20 05:50 Alkaline Phosphatase 74 U/L (45-117) 03/29/20 05:50 Albumin 3.0 g/dl (3.4-5.0) L 03/29/20 05:50 Imaging - Results Ultrasound: Report Reviewed, Image Reviewed Problem List - Problems (1) Abscess of sigmoid colon due to diverticulitis Assessment/Plan: Suspected intramural abscess of the colon Advise: NPO except meds Glycemic control. Suspect the hyperglycemia (blood glucose has otherwise been well controlled per the patient) secondary to infection IV Abx. ID will be assessing and modifying regimen if necessary Intramural abscesses are generally not amenable to IR drainage given potential risk of fistula formation Surgery has been consulted Code(s): K57.20 - DVTRCLI OF LG INT W PERFORATION AND ABSCESS W/O BLEEDING
[2020-03-29] MEDS ORDERED: ACETAMINOPHEN 1000 MG/100 ML VIAL (NON FORMULARY) IVPB PRN (15:53)
[2020-03-29] MEDS ORDERED: GABAPENTIN 100 MG CAPSULE ONE (22:02)
[2020-03-29] MEDS ORDERED: HEPARIN NA (PORCINE) 5,000 UNITS/ML 1ML VIAL ONE (22:03)
--- NOTE | 2020-03-29 22:26 | CONSULT ---
Consult Consult Specialty:: ENDOCRINE Referred by:: DR.ADAM CARNEY Reason for Consultation:: LEFT ADRENAL NODULE (1.4CM) - History of Present Illness Chief Complaint: HIGH SUGARS History of Present Illness: 84 Y male with 2DM who was admitted for abdominal pain,high blood sugars,andd leukocytosis . he has noted for the past two weeks he has had abdominal pain, poor oral intake, and fatigue. he lost about 20lb during that time but denies fever, chills, vomiting, diarrhea. he was taking sugars pills at home but did not check blood sugars,he denies low blood sugars,or vision loss,he has an adrenal nodule on ct scan which has increased in size since prior study - Past Medical History Endocrine: Yes: Diabetes Mellitus (DM II) - Past Surgical History Past Surgical History: Yes: Hernia Repair (Umbilical hernia) Additional Surgical History: Circumcision - Alcohol/Substance Use Hx Alcohol Use: Yes (SOCIALLY) - Smoking History Smoking history: Former smoker Have you smoked in the past 12 months: No If you are a former smoker, when did you quit?: 25 - Social History Usual Living Arrangement: With Spouse ADL: Independent 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 History of Recent Travel: No Home Medications - Allergies Allergies/Adverse Reactions: Allergies Allergy/AdvReac Type Severity Reaction Status Date / Time No Known Drug Allergies Allergy Verified 08/23/15 07:58 - Home Medications Home Medications: Ambulatory Orders Amitriptyline HCl [Elavil -] 10 mg PO DAILY 03/29/20 Gabapentin 300 mg PO BID 03/29/20 Glipizide [Glipizide ER] 5 mg PO DAILY 03/29/20 Hydrocodone/Acetaminophen [[place] 10-325 Tablet] 10 - 325 mg PO QID 03/29/20 Sitagliptin Phos/Metformin HCl [Janumet Xr 100-1,000 mg Tablet] 1 tab PO DAILY 03/29/20 Family Medical History Other Family History: Mother: : 70's "Old age". Father: : 70's "old age". 5 brother, 7 sisters: all except 1 sister. He does not recall causes of . 2 sons, 1 daughter: healthy. No family history of colorectal cancer or other GI malignancy Review of Systems - Review of Systems Constitutional: reports: Lethargy Eyes: reports: No Symptoms HENT: reports: No Symptoms Neck: reports: No Symptoms Cardiovascular: reports: Shortness of Breath Respiratory: reports: Exercise Intolerance, SOB, SOB on Exertion Gastrointestinal: reports: Indigestion, Nausea Genitourinary: reports: Frequency Breasts: reports: No Symptoms Reported Musculoskeletal: reports: Muscle Cramps, Muscle Weakness Neurological: reports: Numbness Endocrine: reports: Unexplained Weight Gain Physical Exam Vital Signs: Vital Signs Temperature 97.7 F 03/29/20 20:20 Pulse Rate 70 03/29/20 20:20 Respiratory Rate 19 03/29/20 20:20 Blood Pressure 127/51 L 03/29/20 20:20 O2 Sat by Pulse Oximetry (%) 98 03/29/20 20:20 Constitutional: Yes: Calm Eyes: Yes: EOM Intact HENT: Yes: Normocephalic Neck: Yes: Trachea Midline Cardiovascular: Yes: Regular Rate and Rhythm Labs: CBC, BMP 03/29/20 05:50 03/29/20 05:50 Problem List - Problems (1) Abscess of sigmoid colon due to diverticulitis Problems reviewed: Yes Code(s): K57.20 - DVTRCLI OF LG INT W PERFORATION AND ABSCESS W/O BLEEDING (2) Chronic low back pain Code(s): M54.5 - LOW BACK PAIN; G89.29 - OTHER CHRONIC PAIN (3) Diabetes Code(s): E11.9 - TYPE 2 DIABETES MELLITUS WITHOUT COMPLICATIONS (4) Diverticulitis Code(s): K57.92 - DVTRCLI OF INTEST, PART UNSP, W/O PERF OR ABSCESS W/O BLEED (5) Left adrenal mass Code(s): E27.8 - OTHER SPECIFIED DISORDERS OF ADRENAL GLAND (6) Lumbar degenerative disc disease Code(s): M51.36 - OTHER INTERVERTEBRAL DISC DEGENERATION, LUMBAR REGION (7) Lumbar radiculopathy Code(s): M54.16 - RADICULOPATHY, LUMBAR REGION (8) Lumbar spondylosis Code(s): M47.816 - SPONDYLOSIS W/O MYELOPATHY OR RADICULOPATHY, LUMBAR REGION Assessment/Plan Current Active Problems LEFT ADRENAL ADENOMA Abscess of sigmoid colon due to diverticulitis (Acute) Chronic low back pain (Acute) Diabetes (Acute) Diverticulitis (Acute) Left adrenal mass (Acute) Lumbar degenerative disc disease (Acute) Lumbar radiculopathy (Acute) Lumbar spondylosis (Acute) Abnormal Lab Results 03/28/20 03/28/20 03/29/20 22:06 22:06 05:50 WBC 12.1 H 11.1 H RBC 3.64 L 3.33 L Hgb 10.9 L 10.1 L Hct 34.1 L 30.7 L Absolute Neuts (auto) 10.1 H 8.8 H Neutrophils % 83.5 H Sodium 131 L Chloride 96 L Anion Gap BUN 20.8 H Creatinine 1.4 H Random Glucose 473 H* Phosphorus 2.1 L AST 14 L Albumin 2.8 L 03/29/20 05:50 WBC RBC Hgb Hct Absolute Neuts (auto) Neutrophils % Sodium 135 L Chloride Anion Gap 7 L BUN Creatinine Random Glucose 213 H Phosphorus 2.4 L AST 9 L Albumin 3.0 L Laboratory Results - last 24 hr 03/28/20 03/28/20 03/28/20 22:06 22:06 22:06 WBC 12.1 H RBC 3.64 L Hgb 10.9 L Hct 34.1 L MCV 93.6 MCH 30.0 MCHC 32.1 RDW 14.1 Plt Count 368 MPV 10.3 Absolute Neuts (auto) 10.1 H Neutrophils % 83.5 H Lymphocytes % 11.0 Monocytes % 4.3 Eosinophils % 0.6 Basophils % 0.6 Nucleated RBC % 0 PT with INR 12.30 INR 1.04 PTT (Actin FS) 27.6 Sodium 131 L Potassium 4.6 Chloride 96 L Carbon Dioxide 27 Anion Gap 8 BUN 20.8 H Creatinine 1.4 H Est GFR (CKD-EPI)AfAm 53.09 Est GFR (CKD-EPI)NonAf 45.81 POC Glucometer Random Glucose 473 H* Calcium 8.7 Phosphorus 2.1 L Magnesium 2.3 Total Bilirubin 0.6 Direct Bilirubin 0.2 AST 14 L ALT 30 Alkaline Phosphatase 106 Total Protein 8.0 Albumin 2.8 L Lipase 131 03/29/20 03/29/20 03/29/20 01:28 05:50 05:50 WBC 11.1 H RBC 3.33 L Hgb 10.1 L Hct 30.7 L MCV 92.0 MCH 30.4 MCHC 33.0 RDW 14.1 Plt Count 331 MPV 9.7 Absolute Neuts (auto) 8.8 H Neutrophils % 79.6 Lymphocytes % 12.8 Monocytes % 5.9 Eosinophils % 1.0 Basophils % 0.7 Nucleated RBC % 0 PT with INR INR PTT (Actin FS) Sodium 135 L Potassium 3.9 Chloride 102 Carbon Dioxide 27 Anion Gap 7 L BUN 17.8 Creatinine 1.1 Est GFR (CKD-EPI)AfAm 71.07 Est GFR (CKD-EPI)NonAf 61.32 POC Glucometer 383 Random Glucose 213 H Calcium 8.5 Phosphorus 2.4 L Magnesium 2.1 Total Bilirubin 0.6 Direct Bilirubin AST 9 L ALT 21 Alkaline Phosphatase 74 Total Protein 6.7 Albumin 3.0 L Lipase 03/29/20 03/29/20 03/29/20 07:25 11:26 16:42 WBC RBC Hgb Hct MCV MCH MCHC RDW Plt Count MPV Absolute Neuts (auto) Neutrophils % Lymphocytes % Monocytes % Eosinophils % Basophils % Nucleated RBC % PT with INR INR PTT (Actin FS) Sodium Potassium Chloride Carbon Dioxide Anion Gap BUN Creatinine Est GFR (CKD-EPI)AfAm Est GFR (CKD-EPI)NonAf POC Glucometer 231 271 185 Random Glucose Calcium Phosphorus Magnesium Total Bilirubin Direct Bilirubin AST ALT Alkaline Phosphatase Total Protein Albumin Lipase PLAN: DEXAMETHASONE SUPPRESION TEST AM CORTISOL HBA1C BGM QID NOVOLOG SCALE GI WORKUP
[2020-03-29] MEDS: DEXAMETHASONE 0.5 MG TABLET PO SCH (23:00)
[2020-03-29] MEDS: HEPARIN NA (PORCINE) 5,000 UNITS/ML 1ML VIAL SQ SCH (23:25)
[2020-03-29] MEDS: GABAPENTIN 300 MG CAPSULE PO SCH (23:25)
[2020-03-30] MEDS: INSULIN SLIDING SCALE (NOVOLOG) 1 VIAL SQ SCH ×3 (06:04→17:18)
--- NOTE | 2020-03-30 06:54 | PN ---
Progress Note (short form) - Note Progress Note: PULMONARY CONSULTATION DICTATED 03/30/20 IMP ABDOMINAL PAIN SECONDARY ACUTE SIGMOID DIVERTICULITIS,?ABSCESS GGO RLL ? CHRONIC,?INFECTIOUS BILATERAL PLEURAL CALCIFICATIONS LIKELY ASBESTOS PLEURAL DISEASE COPD DM LEFT ADRENAL MASS ?MALIGNANT ANEMIA WT LOSS PLAN SUPPLEMENTAL O2 INHALED BRONCHODILATORS ABX PER ID ? DRAINAGE ABSCESS ? ADRENAL BX F/U CHEST CT OUTPATIENT PFTS OUTPATIENT DR VARGAS Problem List - Problems (1) Ground glass opacity present on imaging of lung Code(s): R91.8 - OTHER NONSPECIFIC ABNORMAL FINDING OF LUNG FIELD (2) Abscess of sigmoid colon due to diverticulitis Code(s): K57.20 - DVTRCLI OF LG INT W PERFORATION AND ABSCESS W/O BLEEDING (3) Diabetes Code(s): E11.9 - TYPE 2 DIABETES MELLITUS WITHOUT COMPLICATIONS (4) Diverticulitis Code(s): K57.92 - DVTRCLI OF INTEST, PART UNSP, W/O PERF OR ABSCESS W/O BLEED (5) Left adrenal mass Code(s): E27.8 - OTHER SPECIFIED DISORDERS OF ADRENAL GLAND (6) Pleural calcification Code(s): J94.8 - OTHER SPECIFIED PLEURAL CONDITIONS
--- NOTE | 2020-03-30 08:04 | PN ---
Progress Note (short form) - Note Progress Note: No fever. Denies abdominal pain. No BM but is passing small amounts of flatus. Abdominal exam: slightly distended, bowel sounds present, soft, nontender. CBC WBC 11.1 K/mm3 (4.0-10.0) H 03/29/20 05:50 RBC 3.33 M/mm3 (4.00-5.60) L 03/29/20 05:50 Hgb 10.1 GM/dL (11.7-16.9) L 03/29/20 05:50 Hct 30.7 % (35.4-49) L 03/29/20 05:50 MCV 92.0 fl (80-96) 03/29/20 05:50 MCH 30.4 pg (25.7-33.7) 03/29/20 05:50 MCHC 33.0 g/dl (32.0-35.9) 03/29/20 05:50 RDW 14.1 % (11.9-15.9) 03/29/20 05:50 Plt Count 331 K/MM3 (134-434) 03/29/20 05:50 MPV 9.7 fl (7.5-11.1) 03/29/20 05:50 Absolute Neuts (auto) 8.8 K/mm3 (1.5-8.0) H 03/29/20 05:50 Neutrophils % 79.6 % (42.8-82.8) 03/29/20 05:50 Lymphocytes % 12.8 % (8-40) 03/29/20 05:50 Monocytes % 5.9 % (3.8-10.2) 03/29/20 05:50 Eosinophils % 1.0 % (0-4.5) 03/29/20 05:50 Basophils % 0.7 % (0-2.0) 03/29/20 05:50 Nucleated RBC % 0 % (0-0) 03/29/20 05:50 WBC down yesterday. Impression: Diverticular abscess, responding to antibiotics. Most diverticular abscesses < 4 cm can be treated with antibiotics without any other intervention. Continue current therapy. Would continue to limit oral intake today but possibly liberalize tomorrow if continued improvement.
--- NOTE | 2020-03-30 08:48 | PN ---
Progress Note (short form) - Note Progress Note: Attending Surgeon Seen in f/u; no c/o. VSS AF abdo-soft; minimal tenderness to palpation; o/w negative. WBC trending down IMP: improving PLAN: Continue present tx. Kareem Reyes MD FACS
[2020-03-30] MEDS ORDERED: DEXTROSE 5%-WATER 100 ML IVPB ONE (09:00)
[2020-03-30] MEDS ORDERED: PANTOPRAZOLE SODIUM 40 MG in SODIUM CHLORIDE 100 ML IVPB SCH (10:00)
[2020-03-30] MEDS: AMITRIPTYLINE HCL 10 MG TABLET PO SCH (10:34)
[2020-03-30] MEDS: PANTOPRAZOLE SODIUM 40 MG VIAL IVPUSH SCH (10:37)
[2020-03-30] MEDS: HEPARIN NA (PORCINE) 5,000 UNITS/ML 1ML VIAL SQ SCH ×2 (10:37→21:27)
[2020-03-30] MEDS: GABAPENTIN 300 MG CAPSULE PO SCH ×2 (10:38→21:28)
[2020-03-30] MEDS: CEFTRIAXONE 2 GM in DEXTROSE 5%-WATER 100 ML IVPB SCH (10:38)
--- NOTE | 2020-03-30 11:29 | CONS ---
DATE OF CONSULTATION: 03/30/2020 REFERRING PHYSICIAN: JL Alcala CHIEF COMPLAINT/HISTORY OF PRESENT ILLNESS: The patient is an 84-year-old male with past medical history of diabetes, GERD, insomnia, admitted to [facility] with hyperglycemia, leukocytosis, and 20-pound weight loss in 2 weeks. Patient apparently states approximately 2 weeks prior to admission, he started losing his appetite. He also complained of some dizziness and repeated falls without or loss of consciousness. Apparently during one of his falls he hit the left side of chest, which made it mildly tender. There was no evidence of pleural effusion. He denies any chest pain, nausea, vomiting. Denies any shortness of breath, dyspnea on exertion, PND, or orthopnea. Denies any history of COPD, although chest CT reveals evidence of paraseptal emphysema, predominantly upper lobes. 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 On admission, he underwent a CT of the chest as well as CT of the abdomen. CT of the abdomen reveals evidence of acute sigmoid diverticulitis. He is also noted to have adrenal mass which has increased in size. On initial physical exam he was noted to have evidence of bronchospasm. Although stated he fully denies any history of COPD, although there is radiographic evidence of emphysema. Patient was evaluated by ID and GI. Patient was started on broad-spectrum antibiotics. PAST MEDICAL HISTORY: Again includes diabetes, GERD. SOCIAL HISTORY: History of tobacco use, quit years ago. 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 Born in [facility], moved to the [facility] years ago. CURRENT MEDICATIONS: Include Tylenol, ceftriaxone, metronidazole, Neurontin, Elavil, albuterol, Decadron, NovoLog, Protonix. REVIEW OF SYSTEMS: No orthopnea, no PND. Positive weakness. No chest pain. Mild left-sided chest discomfort secondary to fall. No chest pressure. Positive occasional wheezes. Positive abdominal pain. Positive weight loss. PHYSICAL EXAMINATION: General: The patient is a well-developed, well-nourished male, awake, alert, in no acute distress. Vital Signs: He is afebrile. Blood pressure is 152/69. Respiratory rate is 19. O2 saturation is 98% on room air. HEENT: Normocephalic, atraumatic. Neck: Supple. Heart: Regular S1, S2. Chest: Bibasilar crackles. Abdomen: Soft. Bowel sounds are positive. Extremities: No cyanosis or edema. LABORATORY: WBC is 11.1, hemoglobin 10.1, hematocrit 30.7, with a platelet count of 331,000. INR is 1.04. Chemistries: BUN 17, creatinine 1.1. COVID is pending. IMAGING: Chest CT again as noted, reveals evidence of bilateral pleural calcifications. There is ground-glass opacification in superior segment of right lower lobe and bilateral dependent segmental atelectasis, and there was extensive bilateral upper lobe paraseptal and septal emphysema. No evidence of rib fractures or pleural effusions was appreciated. IMPRESSION: 1. Abdominal pain secondary to acute sigmoid diverticulitis, possible abscess. 2. Ground-glass opacity, right lower lobe, possible chronic, possible acute infectious. 3. 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 4. Chronic obstructive pulmonary disease noted on CT scan of the chest. Currently nonacute exacerbation. 5. Diabetes. 6. Left adrenal mass, rule out possible malignant versus adenoma. 7. Anemia. 8. Weight loss. PLAN: Supplemental O2, inhaled bronchodilators, antibiotics from infectious disease. Questionable drainage of abdominal abscess. Consider adrenal biopsy. Also obtain followup chest CT as outpatient as well as PFTs outpatient. HUMBERTO VARGAS M.D. DRAKE/[id number]
[2020-03-30 13:10] LABS: BASO % 0.8 % (0-2.0); EOS % 0.9 % (0-4.5); HEMATOCRIT 32.4 % (35.4-49); HEMOGLOBIN 10.8 GM/dL (11.7-16.9); LYMPH % 16.9 % (8-40); MCH 31.1 pg (25.7-33.7); MCHC 33.4 g/dl (32.0-35.9); MEAN CELL VOLUME 93.3 fl (80-96); MEAN PLT VOLUME 10.5 fl (7.5-11.1); MONO % 5.3 % (3.8-10.2); NEUT % 76.1 % (42.8-82.8); PLATELET COUNT 366 K/MM3 (134-434); RBC 3.47 M/mm3 (4.00-5.60); RDW 13.7 % (11.9-15.9); WHITE BLOOD COUNT 10.1 K/mm3 (4.0-10.0)
[2020-03-30 13:36] LABS: ALBUMIN 2.6 g/dl (3.4-5.0); BILIRUBIN,TOTAL 0.4 mg/dL (0.2-1); BLOOD UREA NITROGEN 13.1 mg/dL (7-18); CALCIUM 8.2 mg/dL (8.5-10.1); CREATININE 1.1 mg/dL (0.55-1.3); TOT PROT 7.2 g/dl (6.4-8.2)
[2020-03-30] MEDS: SODIUM CHLORIDE 1,000 ML IV SCH (14:24)
--- NOTE | 2020-03-30 14:57 | PN ---
Physical Exam: SUBJECTIVE: Patient seen and examined, present. pt NPO, reports abd pain is improved compared to yesterday. passing small amount of flatus, no BM OBJECTIVE: Vital Signs Period Temp Pulse Resp BP Sys/Hoskins Pulse Ox Last 24 Hr 97.7 F-98.7 F 69-84 16-20 124-152/51-69 94-98 GENERAL: The patient is awake, alert, and fully oriented, in no acute distress. HEAD: Normal with no signs of trauma. EYES: PERRL, extraocular movements intact, sclera anicteric, conjunctiva clear. No ptosis. ENT: Ears normal, nares patent, oropharynx clear without exudates, moist mucous membranes. NECK: Trachea midline, full range of motion, supple. LUNGS: Breath sounds equal, clear to auscultation bilaterally, no wheezes, no crackles, no accessory muscle use. HEART: Regular rate and rhythm, S1, S2 without murmur, rub or gallop. ABDOMEN: Soft, nontender, nondistended, normoactive bowel sounds, no guarding, n o rebound, no hepatosplenomegaly, no masses. EXTREMITIES: 2+ pulses, warm, well-perfused, no edema. NEUROLOGICAL: Cranial nerves II through XII grossly intact. Normal speech, gait not observed. PSYCH: Normal mood, normal affect. SKIN: Warm, dry, normal turgor, no rashes or lesions noted Laboratory Results - last 24 hr 03/29/20 03/29/20 03/30/20 02:20 16:42 06:00 WBC RBC Hgb Hct MCV MCH MCHC RDW Plt Count MPV Absolute Neuts (auto) Neutrophils % Lymphocytes % Monocytes % Eosinophils % Basophils % Nucleated RBC % Sodium Potassium Chloride Carbon Dioxide Anion Gap BUN Creatinine Est GFR (CKD-EPI)AfAm Est GFR (CKD-EPI)NonAf POC Glucometer 185 222 Random Glucose Hemoglobin A1c % Calcium Magnesium Total Bilirubin AST ALT Alkaline Phosphatase C-Reactive Protein Total Protein Albumin COVID-19 (LINDA) Not detected 03/30/20 03/30/20 03/30/20 11:35 12:45 12:45 WBC 10.1 H RBC 3.47 L Hgb 10.8 L Hct 32.4 L MCV 93.3 MCH 31.1 MCHC 33.4 RDW 13.7 Plt Count 366 MPV 10.5 Absolute Neuts (auto) 7.7 Neutrophils % 76.1 Lymphocytes % 16.9 D Monocytes % 5.3 Eosinophils % 0.9 Basophils % 0.8 Nucleated RBC % 0 Sodium 137 Potassium 4.0 Chloride 105 Carbon Dioxide 25 Anion Gap 7 L BUN 13.1 Creatinine 1.1 Est GFR (CKD-EPI)AfAm 71.07 Est GFR (CKD-EPI)NonAf 61.32 POC Glucometer 177 Random Glucose 217 H Hemoglobin A1c % Calcium 8.2 L Magnesium Total Bilirubin 0.4 AST 11 L ALT 20 Alkaline Phosphatase 67 C-Reactive Protein 9.0 H Total Protein 7.2 Albumin 2.6 L COVID-19 (LINDA) 03/30/20 03/30/20 12:45 12:45 WBC RBC Hgb Hct MCV MCH MCHC RDW Plt Count MPV Absolute Neuts (auto) Neutrophils % Lymphocytes % Monocytes % Eosinophils % Basophils % Nucleated RBC % Sodium Potassium Chloride Carbon Dioxide Anion Gap BUN Creatinine Est GFR (CKD-EPI)AfAm Est GFR (CKD-EPI)NonAf POC Glucometer Random Glucose Hemoglobin A1c % 10.5 H Calcium Magnesium 2.1 Total Bilirubin AST ALT Alkaline Phosphatase C-Reactive Protein Total Protein Albumin COVID-19 (LINDA) Active Medications Generic Name Dose Route Start Last Admin Trade Name Freq PRN Reason Stop Dose Admin Acetaminophen 1,000 mg 03/29/20 15:53 Ofirmev Injection - IVPB 03/30/20 15:53 Q6H PRN PAIN LEVEL 6-10 Albuterol Sulfate 2 puff 03/29/20 03:29 Ventolin Hfa Inhaler - IH Q6H PRN SHORT OF BREATH/WHEEZING Amitriptyline HCl 10 mg 03/30/20 10:00 03/30/20 10:34 Elavil - PO Not Given DAILY [facility] Dexamethasone 1 mg 03/29/20 22:00 03/29/20 23:00 Decadron - PO 1 mg HS STAR Administration Gabapentin 300 mg 03/29/20 22:00 03/30/20 10:38 Neurontin - PO Not Given BID STAR Heparin Sodium (Porcine) 5,000 unit 03/29/20 22:00 03/30/20 10:37 Heparin - SQ 5,000 unit BID STAR Administration Ceftriaxone Sodium 2 gm/ 100 mls @ 100 mls/hr 03/29/20 10:30 03/30/20 10:38 Dextrose IVPB 100 mls/hr DAILY [facility] Administration Protocol Metronidazole 500 mg in 100 mls @ 100 mls/hr 03/29/20 10:30 03/30/20 10:37 Flagyl 500mg Premixed Ivpb - IVPB 100 mls/hr Q8H-IV STAR Administration Sodium Chloride 1,000 mls @ 75 mls/hr 03/30/20 13:45 03/30/20 14:24 Normal Saline - IV 75 mls/hr ASDIR [facility] Administration Insulin Aspart 1 vial 03/29/20 17:00 03/30/20 11:32 Novolog Vial Sliding Scale - SQ 2 units TIDAC STAR Administration Protocol Pantoprazole Sodium 40 mg 03/30/20 10:00 03/30/20 10:37 Protonix Iv IVPUSH 40 mg DAILY STAR Administration ASSESSMENT/PLAN: Patient is an 84 year old male with a significant past medical history of diabetes, GERD, and insomnia. He presents to the ED on 03/29/2020 from his PCP's office for elevated blood sugar (400s with normal anion gap), leukocytosis and weight loss. #Acute sigmoid diverticulitis with enhancing fluid, possible abscess formation -c/w Ceftriaxone and Flagyl -NPO except for meds -IVF hydration, NS 75 -Surgery evaluation for abscess- c/w IV abt -GI following -CT abdomen/pelvis: acute sigmoid diverticulitis with an associated peripherally enhancing fluid component that may represent an abscess formation. no evidence of perforation. fatty atrophy of pancreas, and a 1.35cm Left adrenal mass #patchy goundglass opacifications -oxygen prn -CT chest with contrast 03/28/2020: extensive bilateral upper lobe predominant paraseptal an centriobular emphysematous changes. patchy area of groundglass opacifiation. -pulm note appreciated-inhaled bronchodilators -f/u outpt for Chest CT #DM w/hyperglycemia -a1c 10.5 -ISC novolog SS and monitor bgms while NPO #GERD protonox iv push daily #Adrenal mass -endocrine note appreciated -dexamethasone suppression test -Cortisol level pending FEN: NS @ 75cc hr monitor electrolytes daily NPO except for meds DVT prophy: heparin bid Visit type - Emergency Visit Emergency Visit: Yes ED Registration Date: 03/29/20 Care time: The patient presented to the Emergency Department on the above date and was hospitalized for further evaluation of their emergent condition. - New Patient This patient is new to me today: Yes Date on this admission: 03/30/20 - Critical Care Critical Care patient: No - Medication Review Med list reviewed for High Risk Meds patients 65 and older: No
[2020-03-30] MEDS ORDERED: INSULIN (NOVOLOG) ASPART 100 UNITS/ML 10ML VIAL ONE (17:57)
[2020-03-30] MEDS: DEXAMETHASONE 0.5 MG TABLET PO SCH (21:27)
[2020-03-31] MEDS: SODIUM CHLORIDE 1,000 ML IV SCH ×3 (05:26→21:20)
[2020-03-31] MEDS: INSULIN SLIDING SCALE (NOVOLOG) 1 VIAL SQ SCH ×3 (06:15→17:01)
--- NOTE | 2020-03-31 08:35 | PN ---
Progress Note, Physician History of Present Illness: PULMONARY ALERT,COMFORTABLE,-SOB,LESS ABD DISCOMFORT - Current Medication List Current Medications: Active Medications Albuterol Sulfate (Ventolin Hfa Inhaler -) 2 puff IH Q6H PRN PRN Reason: SHORT OF BREATH/WHEEZING Amitriptyline HCl (Elavil -) 10 mg PO DAILY [facility] Last Admin: 03/30/20 10:34 Dose: Not Given Documented by: Dexamethasone (Decadron -) 1 mg PO HS STAR Last Admin: 03/30/20 21:27 Dose: 1 mg Documented by: Gabapentin (Neurontin -) 300 mg PO BID STAR Last Admin: 03/30/20 21:28 Dose: 300 mg Documented by: Heparin Sodium (Porcine) (Heparin -) 5,000 unit SQ BID STAR Last Admin: 03/30/20 21:27 Dose: 5,000 unit Documented by: Ceftriaxone Sodium 2 gm/ (Dextrose) 100 mls @ 100 mls/hr IVPB DAILY [facility]; Protocol Last Admin: 03/30/20 10:38 Dose: 100 mls/hr Documented by: Metronidazole (Flagyl 500mg Premixed Ivpb -) 500 mg in 100 mls @ 100 mls/hr IVPB Q8H-IV STAR Last Admin: 03/31/20 02:03 Dose: 100 mls/hr Documented by: Sodium Chloride (Normal Saline -) 1,000 mls @ 75 mls/hr IV ASDIR [facility] Last Admin: 03/31/20 05:26 Dose: 75 mls/hr Documented by: Insulin Aspart (Novolog Vial Sliding Scale -) 1 vial SQ TIDAC [facility]; Protocol Last Admin: 03/31/20 06:15 Dose: 2 units Documented by: Pantoprazole Sodium (Protonix Iv) 40 mg IVPUSH DAILY [facility] Last Admin: 03/30/20 10:37 Dose: 40 mg Documented by: - Objective Vital Signs: Vital Signs Temperature 98.4 F 03/31/20 04:00 Pulse Rate 73 03/31/20 04:00 Respiratory Rate 18 03/31/20 04:00 Blood Pressure 141/54 L 03/31/20 04:00 O2 Sat by Pulse Oximetry (%) 93 L 03/31/20 04:00 Constitutional: Yes: Well Nourished, Calm Eyes: Yes: WNL HENT: Yes: WNL Neck: Yes: WNL Cardiovascular: Yes: Regular Rate and Rhythm, S1, S2 Respiratory: Yes: Rhonchi (BIBASILAR CRACKLES) Gastrointestinal: Yes: Normal Bowel Sounds, Soft Extremities: Yes: WNL Edema: No Labs: CBC, BMP Problem List - Problems (1) Ground glass opacity present on imaging of lung Code(s): R91.8 - OTHER NONSPECIFIC ABNORMAL FINDING OF LUNG FIELD (2) Abscess of sigmoid colon due to diverticulitis Code(s): K57.20 - DVTRCLI OF LG INT W PERFORATION AND ABSCESS W/O BLEEDING (3) Diabetes Code(s): E11.9 - TYPE 2 DIABETES MELLITUS WITHOUT COMPLICATIONS (4) Diverticulitis Code(s): K57.92 - DVTRCLI OF INTEST, PART UNSP, W/O PERF OR ABSCESS W/O BLEED (5) Left adrenal mass Code(s): E27.8 - OTHER SPECIFIED DISORDERS OF ADRENAL GLAND (6) Pleural calcification Code(s): J94.8 - OTHER SPECIFIED PLEURAL CONDITIONS Assessment/Plan IMP ABDOMINAL PAIN SECONDARY ACUTE SIGMOID DIVERTICULITIS,?ABSCESS GGO RLL ? CHRONIC,?INFECTIOUS BILATERAL PLEURAL CALCIFICATIONS LIKELY ASBESTOS PLEURAL DISEASE COPD DM LEFT ADRENAL MASS ?MALIGNANT ANEMIA WT LOSS PLAN SUPPLEMENTAL O2 INHALED BRONCHODILATORS ABX PER ID ? DRAINAGE ABSCESS ? ADRENAL BX F/U CHEST CT OUTPATIENT PFTS OUTPATIENT DR VARGAS Problem List - Problems (1) Ground glass opacity present on imaging of lung Code(s): R91.8 - OTHER NONSPECIFIC ABNORMAL FINDING OF LUNG FIELD (2) Abscess of sigmoid colon due to diverticulitis Code(s): K57.20 - DVTRCLI OF LG INT W PERFORATION AND ABSCESS W/O BLEEDING (3) Diabetes Code(s): E11.9 - TYPE 2 DIABETES MELLITUS WITHOUT COMPLICATIONS (4) Diverticulitis Code(s): K57.92 - DVTRCLI OF INTEST, PART UNSP, W/O PERF OR ABSCESS W/O BLEED (5) Left adrenal mass Code(s): E27.8 - OTHER SPECIFIED DISORDERS OF ADRENAL GLAND (6) Pleural calcification Code(s): J94.8 - OTHER SPECIFIED PLEURAL CONDITIONS
--- NOTE | 2020-03-31 08:37 | PN ---
Progress Note (short form) - Note Progress Note: less abdominal pain +BM yesterday Vital Signs Period Temp Pulse Resp BP Sys/Hoskins Pulse Ox Last 24 Hr 98 F-98.7 F 66-73 18-20 126-152/51-72 92-96 cor-rrr lungs decreased bs at bases abd soft, nt ext no edema CBC, BMP 03/30/20 12:45 03/30/20 12:45 Laboratory Tests 03/30/20 03/30/20 12:45 12:45 Hemoglobin A1c % 10.5 H C-Reactive Protein 9.0 H imp/reccd diverticulitis with abscess continue ceftriaxone and flagyl trend crp advance diet per GI Problem List - Problems (1) Abscess of sigmoid colon due to diverticulitis Code(s): K57.20 - DVTRCLI OF LG INT W PERFORATION AND ABSCESS W/O BLEEDING (2) Diverticulitis Code(s): K57.92 - DVTRCLI OF INTEST, PART UNSP, W/O PERF OR ABSCESS W/O BLEED (3) Left adrenal mass Code(s): E27.8 - OTHER SPECIFIED DISORDERS OF ADRENAL GLAND
[2020-03-31] MEDS ORDERED: PT OWN MED DRAWER 7, Y5N ONE ×2 (09:20→20:22)
[2020-03-31] MEDS ORDERED: DEXTROSE 5%-WATER 100 ML IVPB ONE (09:21)
[2020-03-31] MEDS: CEFTRIAXONE 2 GM in DEXTROSE 5%-WATER 100 ML IVPB SCH (09:41)
[2020-03-31] MEDS: HEPARIN NA (PORCINE) 5,000 UNITS/ML 1ML VIAL SQ SCH ×2 (09:42→21:21)
[2020-03-31] MEDS: PANTOPRAZOLE SODIUM 40 MG VIAL IVPUSH SCH (09:42)
[2020-03-31] MEDS: AMITRIPTYLINE HCL 10 MG TABLET PO SCH (09:43)
[2020-03-31] MEDS: GABAPENTIN 300 MG CAPSULE PO SCH ×2 (09:43→21:20)
--- NOTE | 2020-03-31 09:52 | PN ---
Progress Note (short form) - Note Progress Note: Attending Surgeon Seen in f/u; ? flatus and/or BM VSS AF abdomen-soft; minimal if any ttp LLQ o/w negative WBC-10.1 IMP: sigmoid diverticulitis PLAN: Continue NPO/IVAB's/trend temp and WBC Kareem Reyes MD FACS
[2020-03-31 11:01] LABS: BASO % 1.1 % (0-2.0); EOS % 1.3 % (0-4.5); HEMATOCRIT 29.3 % (35.4-49); HEMOGLOBIN 9.5 GM/dL (11.7-16.9); LYMPH % 19.9 % (8-40); MCH 30.4 pg (25.7-33.7); MCHC 32.6 g/dl (32.0-35.9); MEAN CELL VOLUME 93.2 fl (80-96); MEAN PLT VOLUME 10.3 fl (7.5-11.1); MONO % 7.1 % (3.8-10.2); NEUT % 70.6 % (42.8-82.8); PLATELET COUNT 326 K/MM3 (134-434); RBC 3.14 M/mm3 (4.00-5.60); WHITE BLOOD COUNT 6.9 K/mm3 (4.0-10.0)
[2020-03-31 11:31] LABS: ALBUMIN 2.3 g/dl (3.4-5.0); BILIRUBIN,TOTAL 0.4 mg/dL (0.2-1); CALCIUM 7.8 mg/dL (8.5-10.1); TOT PROT 6.3 g/dl (6.4-8.2)
--- NOTE | 2020-03-31 14:13 | PN ---
Physical Exam: SUBJECTIVE: Patient seen and examined, denies abd pain, adv diet as per GI OBJECTIVE: Vital Signs Period Temp Pulse Resp BP Sys/Hoskins Pulse Ox Last 24 Hr 97.8 F-98.4 F 66-73 18-20 135-152/47-72 92-96 GENERAL: The patient is awake, alert, and fully oriented, in no acute distress. HEAD: Normal with no signs of trauma. EYES: PERRL, extraocular movements intact, sclera anicteric, conjunctiva clear. No ptosis. ENT: Ears normal, nares patent, oropharynx clear without exudates, moist mucous membranes. NECK: Trachea midline, full range of motion, supple. LUNGS: Breath sounds equal, clear to auscultation bilaterally, no wheezes, no crackles, no accessory muscle use. HEART: Regular rate and rhythm, S1, S2 without murmur, rub or gallop. ABDOMEN: Soft, nontender, nondistended, normoactive bowel sounds, no guarding, no rebound, no hepatosplenomegaly, no masses. EXTREMITIES: 2+ pulses, warm, well-perfused, no edema. NEUROLOGICAL: Cranial nerves II through XII grossly intact. Normal speech, gait not observed. PSYCH: Normal mood, normal affect. SKIN: Warm, dry, normal turgor, no rashes or lesions noted Laboratory Results - last 24 hr 03/30/20 03/31/20 03/31/20 17:19 06:14 10:14 WBC 6.9 RBC 3.14 L Hgb 9.5 L Hct 29.3 L MCV 93.2 MCH 30.4 MCHC 32.6 RDW 14.0 Plt Count 326 MPV 10.3 Absolute Neuts (auto) 4.9 Neutrophils % 70.6 Lymphocytes % 19.9 Monocytes % 7.1 Eosinophils % 1.3 Basophils % 1.1 Nucleated RBC % 0 Sodium Potassium Chloride Carbon Dioxide Anion Gap BUN Creatinine Est GFR (CKD-EPI)AfAm Est GFR (CKD-EPI)NonAf POC Glucometer 219 181 Random Glucose Calcium Magnesium Total Bilirubin AST ALT Alkaline Phosphatase Total Protein Albumin 03/31/20 03/31/20 10:14 11:32 WBC RBC Hgb Hct MCV MCH MCHC RDW Plt Count MPV Absolute Neuts (auto) Neutrophils % Lymphocytes % Monocytes % Eosinophils % Basophils % Nucleated RBC % Sodium 138 Potassium 4.0 Chloride 107 Carbon Dioxide 22 Anion Gap 9 BUN 13.0 Creatinine 1.0 Est GFR (CKD-EPI)AfAm 79.75 Est GFR (CKD-EPI)NonAf 68.81 POC Glucometer 150 Random Glucose 168 H Calcium 7.8 L Magnesium 2.0 Total Bilirubin 0.4 AST 9 L ALT 16 Alkaline Phosphatase 53 Total Protein 6.3 L Albumin 2.3 L Active Medications Generic Name Dose Route Start Last Admin Trade Name Freq PRN Reason Stop Dose Admin Albuterol Sulfate 2 puff 03/29/20 03:29 Ventolin Hfa Inhaler - IH Q6H PRN SHORT OF BREATH/WHEEZING Amitriptyline HCl 10 mg 03/30/20 10:00 03/31/20 09:43 Elavil - PO 10 mg DAILY [facility]AR Administration Dexamethasone 1 mg 03/29/20 22:00 03/30/20 21:27 Decadron - PO 1 mg HS STAR Administration Gabapentin 300 mg 03/29/20 22:00 03/31/20 09:43 Neurontin - PO 300 mg BID STAR Administration Heparin Sodium (Porcine) 5,000 unit 03/29/20 22:00 03/31/20 09:42 Heparin - SQ 5,000 unit BID STAR Administration Ceftriaxone Sodium 2 gm/ 100 mls @ 100 mls/hr 03/29/20 10:30 03/31/20 09:41 Dextrose IVPB 100 mls/hr DAILY [facility] Administration Protocol Metronidazole 500 mg in 100 mls @ 100 mls/hr 03/29/20 10:30 03/31/20 09:42 Flagyl 500mg Premixed Ivpb - IVPB 100 mls/hr Q8H-IV [facility] Administration Sodium Chloride 1,000 mls @ 75 mls/hr 03/30/20 13:45 03/31/20 05:26 Normal Saline - IV 75 mls/hr ASDIR [facility] Administration Insulin Aspart 1 vial 03/29/20 17:00 03/31/20 11:35 Novolog Vial Sliding Scale - SQ Not Given TIDAC [facility] Protocol Pantoprazole Sodium 40 mg 03/30/20 10:00 03/31/20 09:42 Protonix Iv IVPUSH 40 mg DAILY [facility] Administration ASSESSMENT/PLAN: Patient is an 84 year old male with a significant past medical history of diabetes, GERD, and insomnia. He presents to the ED on 03/29/2020 from his PCP's office for elevated blood sugar (400s with normal anion gap), leukocytosis and weight loss. #Acute sigmoid diverticulitis with enhancing fluid, possible abscess formation -c/w Ceftriaxone and Flagyl -NPO except for meds -IVF hydration, NS 75 -Surgery evaluation for abscess- c/w IV abt -GI following -CT abdomen/pelvis: acute sigmoid diverticulitis with an associated peripherally enhancing fluid component that may represent an abscess formation. no evidence of perforation. fatty atrophy of pancreas, and a 1.35cm Left adrenal mass #patchy goundglass opacifications -oxygen prn -CT chest with contrast 03/28/2020: extensive bilateral upper lobe predominant paraseptal an centriobular emphysematous changes. patchy area of groundglass opacifiation. -pulm note appreciated-inhaled bronchodilators -f/u outpt for Chest CT #DM w/hyperglycemia -a1c 10.5 -ISC novolog SS and monitor bgms while NPO #GERD protonox iv push daily #Adrenal mass -endocrine note appreciated -dexamethasone suppression test -Cortisol level pending FEN: NS @ 75cc hr monitor electrolytes daily NPO except for meds DVT prophy: heparin bid Visit type - Emergency Visit Emergency Visit: Yes ED Registration Date: 03/29/20 Care time: The patient presented to the Emergency Department on the above date and was hospitalized for further evaluation of their emergent condition. - New Patient This patient is new to me today: No - Critical Care Critical Care patient: No - Medication Review Med list reviewed for High Risk Meds patients 65 and older: No
[2020-03-31] MEDS: DEXAMETHASONE 0.5 MG TABLET PO SCH (21:20)
[2020-04-01] MEDS: INSULIN SLIDING SCALE (NOVOLOG) 1 VIAL SQ SCH ×3 (06:16→17:06)
[2020-04-01 08:39] LABS: BASO % 1.3 % (0-2.0); EOS % 0.8 % (0-4.5); HEMATOCRIT 32.7 % (35.4-49); HEMOGLOBIN 10.5 GM/dL (11.7-16.9); MCH 30.3 pg (25.7-33.7); MCHC 32.2 g/dl (32.0-35.9); MEAN CELL VOLUME 94.2 fl (80-96); MEAN PLT VOLUME 10.3 fl (7.5-11.1); MONO % 5.4 % (3.8-10.2); NEUT % 71.5 % (42.8-82.8); PLATELET COUNT 392 K/MM3 (134-434); RBC 3.47 M/mm3 (4.00-5.60); RDW 14.4 % (11.9-15.9); WHITE BLOOD COUNT 7.6 K/mm3 (4.0-10.0)
--- NOTE | 2020-04-01 08:50 | PN ---
Progress Note (short form) - Note Progress Note: Has been afebrile since admission. WBC down to 6K yesterday. Pt denies abdominal pain. Has passed small amount of flatus. On exam how now has normal bowel sounds. Abdomen soft, nontender even to deep palpation. He denies taking anything for heartburn or reflux at home. Will d/c IV pantoprazole as it may increase his chance of getting C. difficile. To begin clear liquid diet.
[2020-04-01 08:58] LABS: ALBUMIN 2.6 g/dl (3.4-5.0); BILIRUBIN,TOTAL 0.5 mg/dL (0.2-1); BLOOD UREA NITROGEN 13.9 mg/dL (7-18); CALCIUM 7.9 mg/dL (8.5-10.1); MAGNESIUM 2.1 mg/dL (1.8-2.4); POTASSIUM 4.2 mmol/L (3.5-5.1); TOT PROT 7.2 g/dl (6.4-8.2)
--- NOTE | 2020-04-01 09:32 | PN ---
Progress Note (short form) - Note Progress Note: Attending Surgeon No c/o; had BM VSS AF abdo-soft; non tender WBC nl IMP: diverticulitis PLAN: Trila of clear liquid diet; continue IVAB's; f/u imaging this week. Kareem Reyes MD FACS
[2020-04-01] MEDS ORDERED: DEXTROSE 5%-WATER 100 ML IVPB ONE (09:50)
[2020-04-01] MEDS: CEFTRIAXONE 2 GM in DEXTROSE 5%-WATER 100 ML IVPB SCH (09:55)
[2020-04-01] MEDS: GABAPENTIN 300 MG CAPSULE PO SCH ×2 (09:55→21:57)
[2020-04-01] MEDS: AMITRIPTYLINE HCL 10 MG TABLET PO SCH (09:55)
[2020-04-01] MEDS: HEPARIN NA (PORCINE) 5,000 UNITS/ML 1ML VIAL SQ SCH ×2 (09:56→21:57)
[2020-04-01] MEDS: SODIUM CHLORIDE 1,000 ML IV SCH ×2 (09:56→15:57)
--- NOTE | 2020-04-01 09:59 | PN ---
Progress Note (short form) - Note Progress Note: PULMONARY Feels tired today. Denies shortness of breath, cough. No fevers. Still mild lower abdominal pain. Vital Signs Period Temp Pulse Resp BP Sys/Hoskins Pulse Ox Last 24 Hr 97.4 F-98.2 F 70-107 18-20 123-141/47-67 92-95 Gen: NAD at rest Heart: RRR Lung: decreased breath sounds at the bases Abd: soft, nontender Ext: no edema CBC, BMP 04/01/20 07:45 04/01/20 07:45 Active Medications Albuterol Sulfate (Ventolin Hfa Inhaler -) 2 puff IH Q6H PRN PRN Reason: SHORT OF BREATH/WHEEZING Amitriptyline HCl (Elavil -) 10 mg PO DAILY [facility] Last Admin: 04/01/20 09:55 Dose: 10 mg Documented by: Dexamethasone (Decadron -) 1 mg PO HS [facility] Last Admin: 03/31/20 21:20 Dose: 1 mg Documented by: Gabapentin (Neurontin -) 300 mg PO BID [facility] Last Admin: 04/01/20 09:55 Dose: 300 mg Documented by: Heparin Sodium (Porcine) (Heparin -) 5,000 unit SQ BID [facility] Last Admin: 04/01/20 09:56 Dose: 5,000 unit Documented by: Ceftriaxone Sodium 2 gm/ (Dextrose) 100 mls @ 100 mls/hr IVPB DAILY [facility]; Protocol Last Admin: 04/01/20 09:55 Dose: 100 mls/hr Documented by: Metronidazole (Flagyl 500mg Premixed Ivpb -) 500 mg in 100 mls @ 100 mls/hr I VPB Q8H-IV [facility] Last Admin: 04/01/20 09:55 Dose: 100 mls/hr Documented by: Sodium Chloride (Normal Saline -) 1,000 mls @ 75 mls/hr IV ASDIR [facility] Last Admin: 04/01/20 09:56 Dose: 75 mls/hr Documented by: Insulin Aspart (Novolog Vial Sliding Scale -) 1 vial SQ TIDAC [facility]; Protocol Last Admin: 04/01/20 06:16 Dose: 2 units Documented by: A/P Acute Diverticulitis COPD Pleural Calcifications likely from prior Asbestos exposure Adrenal Mass DM Anemia - continue antibiotics - PO as tolerated - outpt PFTs and f/u imaging - DVT prophylaxis
[2020-04-01] MEDS ORDERED: PT OWN MED DRAWER 7, Y5N ONE ×2 (10:25→21:12)
[2020-04-01 14:58] VITALS: BMI 26.9
--- NOTE | 2020-04-01 15:55 | PN ---
Physical Exam: SUBJECTIVE: Patient seen and examined, tolerated clears. denies abd pain, +bs, non-tendere OBJECTIVE: Vital Signs Period Temp Pulse Resp BP Sys/Hoskins Pulse Ox Last 24 Hr 97.4 F-98.2 F 66-107 20-20 115-133/40-67 93-95 GENERAL: The patient is awake, alert, and fully oriented, in no acute distress. HEAD: Normal with no signs of trauma. EYES: PERRL, extraocular movements intact, sclera anicteric, conjunctiva clear. No ptosis. ENT: Ears normal, nares patent, oropharynx clear without exudates, moist mucous membranes. NECK: Trachea midline, full range of motion, supple. LUNGS: Breath sounds equal, clear to auscultation bilaterally, no wheezes, no crackles, no accessory muscle use. HEART: Regular rate and rhythm, S1, S2 without murmur, rub or gallop. ABDOMEN: Soft, nontender, nondistended, normoactive bowel sounds, no guarding, no rebound, no hepatosplenomegaly, no masses. EXTREMITIES: 2+ pulses, warm, well-perfused, no edema. NEUROLOGICAL: Cranial nerves II through XII grossly intact. Normal speech, gait not observed. PSYCH: Normal mood, normal affect. SKIN: Warm, dry, normal turgor, no rashes or lesions noted Laboratory Results - last 24 hr 03/31/20 04/01/20 04/01/20 16:54 06:14 07:45 WBC 7.6 RBC 3.47 L Hgb 10.5 L Hct 32.7 L MCV 94.2 MCH 30.3 MCHC 32.2 RDW 14.4 Plt Count 392 D MPV 10.3 Absolute Neuts (auto) 5.5 Neutrophils % 71.5 Lymphocytes % 21.0 Monocytes % 5.4 Eosinophils % 0.8 Basophils % 1.3 Nucleated RBC % 0 Sodium Potassium Chloride Carbon Dioxide Anion Gap BUN Creatinine Est GFR (CKD-EPI)AfAm Est GFR (CKD-EPI)NonAf POC Glucometer 159 169 Random Glucose Calcium Magnesium Total Bilirubin AST ALT Alkaline Phosphatase Total Protein Albumin 04/01/20 04/01/20 07:45 12:23 WBC RBC Hgb Hct MCV MCH MCHC RDW Plt Count MPV Absolute Neuts (auto) Neutrophils % Lymphocytes % Monocytes % Eosinophils % Basophils % Nucleated RBC % Sodium 138 Potassium 4.2 Chloride 108 H Carbon Dioxide 22 Anion Gap 9 BUN 13.9 Creatinine 1.0 Est GFR (CKD-EPI)AfAm 79.75 Est GFR (CKD-EPI)NonAf 68.81 POC Glucometer 130 Random Glucose 164 H Calcium 7.9 L Magnesium 2.1 Total Bilirubin 0.5 AST 23 ALT 23 Alkaline Phosphatase 59 Total Protein 7.2 Albumin 2.6 L Active Medications Generic Name Dose Route Start Last Admin Trade Name Freq PRN Reason Stop Dose Admin Albuterol Sulfate 2 puff 03/29/20 03:29 Ventolin Hfa Inhaler - IH Q6H PRN SHORT OF BREATH/WHEEZING Amitriptyline HCl 10 mg 03/30/20 10:00 04/01/20 09:55 Elavil - PO 10 mg DAILY [facility] Administration Dexamethasone 1 mg 03/29/20 22:00 03/31/20 21:20 Decadron - PO 1 mg HS [facility] Administration Gabapentin 300 mg 03/29/20 22:00 04/01/20 09:55 Neurontin - PO 300 mg BID [facility] Administration Heparin Sodium (Porcine) 5,000 unit 03/29/20 22:00 04/01/20 09:56 Heparin - SQ 5,000 unit BID [facility] Administration Ceftriaxone Sodium 2 gm/ 100 mls @ 100 mls/hr 03/29/20 10:30 04/01/20 09:55 Dextrose IVPB 100 mls/hr DAILY [facility] Administration Protocol Metronidazole 500 mg in 100 mls @ 100 mls/hr 03/29/20 10:30 04/01/20 09:55 Flagyl 500mg Premixed Ivpb - IVPB 100 mls/hr Q8H-IV [facility] Administration Sodium Chloride 1,000 mls @ 75 mls/hr 03/30/20 13:45 04/01/20 09:56 Normal Saline - IV 75 mls/hr ASDIR [facility] Administration Insulin Aspart 1 vial 03/29/20 17:00 04/01/20 12:24 Novolog Vial Sliding Scale - SQ Not Given TIDAC ST[facility] Protocol ASSESSMENT/PLAN: Patient is an 84 year old male with a significant past medical history of diabetes, GERD, and insomnia. He presents to the ED on 03/29/2020 from his PCP's office for elevated blood sugar (400s with normal anion gap), leukocytosis and weight loss. #Acute sigmoid diverticulitis with enhancing fluid, possible abscess formation -c/w Ceftriaxone and Flagyl -diet adv as per GI -IVF hydration, NS 75 -Surgery evaluation for abscess- c/w IV abt -GI following -CT abdomen/pelvis: acute sigmoid diverticulitis with an associated peripherally enhancing fluid component that may represent an abscess formation. no evidence of perforation. fatty atrophy of pancreas, and a 1.35cm Left adrenal mass #patchy goundglass opacifications -oxygen prn -CT chest with contrast 03/28/2020: extensive bilateral upper lobe predominant paraseptal an centriobular emphysematous changes. patchy area of groundglass opacifiation. -pulm note appreciated-inhaled bronchodilators -f/u outpt for Chest CT #DM w/hyperglycemia -a1c 10.5 -ISC novolog SS and monitor bgms #GERD protonox iv push daily #Adrenal mass -endocrine note appreciated -dexamethasone suppression test -Cortisol level pending FEN: NS @ 75cc hr monitor electrolytes daily Diet clears DVT prophy: heparin bid Visit type - Emergency Visit Emergency Visit: Yes ED Registration Date: 03/29/20 Care time: The patient presented to the Emergency Department on the above date and was hospitalized for further evaluation of their emergent condition. - New Patient This patient is new to me today: No - Critical Care Critical Care patient: No - Medication Review Med list reviewed for High Risk Meds patients 65 and older: No
[2020-04-01] MEDS: DEXAMETHASONE 0.5 MG TABLET PO SCH (21:56)
[2020-04-02] MEDS: INSULIN SLIDING SCALE (NOVOLOG) 1 VIAL SQ SCH ×3 (06:08→17:57)
[2020-04-02] MEDS ORDERED: DEXTROSE 5%-WATER 100 ML IVPB ONE (09:06)
[2020-04-02 09:18] LABS: BASO % 0.7 % (0-2.0); EOS % 0.7 % (0-4.5); HEMATOCRIT 33.3 % (35.4-49); HEMOGLOBIN 10.7 GM/dL (11.7-16.9); LYMPH % 19.6 % (8-40); MCH 30.1 pg (25.7-33.7); MCHC 32.3 g/dl (32.0-35.9); MEAN CELL VOLUME 93.3 fl (80-96); MEAN PLT VOLUME 10.2 fl (7.5-11.1); MONO % 5.9 % (3.8-10.2); NEUT % 73.1 % (42.8-82.8); PLATELET COUNT 386 K/MM3 (134-434); RBC 3.56 M/mm3 (4.00-5.60); RDW 14.3 % (11.9-15.9); WHITE BLOOD COUNT 7.3 K/mm3 (4.0-10.0)
[2020-04-02 09:33] LABS: ALBUMIN 2.6 g/dl (3.4-5.0); BILIRUBIN,TOTAL 0.3 mg/dL (0.2-1); BLOOD UREA NITROGEN 9.3 mg/dL (7-18); CALCIUM 8.2 mg/dL (8.5-10.1); MAGNESIUM 2.1 mg/dL (1.8-2.4); POTASSIUM 4.5 mmol/L (3.5-5.1); TOT PROT 7.1 g/dl (6.4-8.2)
[2020-04-02] MEDS: CEFTRIAXONE 2 GM in DEXTROSE 5%-WATER 100 ML IVPB SCH (09:36)
[2020-04-02] MEDS: HEPARIN NA (PORCINE) 5,000 UNITS/ML 1ML VIAL SQ SCH ×2 (09:37→22:56)
[2020-04-02] MEDS: GABAPENTIN 300 MG CAPSULE PO SCH ×2 (09:37→22:57)
[2020-04-02] MEDS ORDERED: PT OWN MED DRAWER 7, Y5N ONE ×2 (09:38→22:54)
[2020-04-02] MEDS: AMITRIPTYLINE HCL 10 MG TABLET PO SCH (09:39)
--- NOTE | 2020-04-02 10:08 | PN ---
Progress Note (short form) - Note Progress Note: PULMONARY Tolerating clears. Denies shortness of breath, cough. No fevers. Vital Signs Period Temp Pulse Resp BP Sys/Hoskins Pulse Ox Last 24 Hr 97.5 F-98.1 F 66-89 20-20 121-136/40-58 89-95 Gen: NAD at rest Heart: RRR Lung: decreased breath sounds at the bases Abd: soft, nontender Ext: no edema CBC, BMP 04/02/20 07:24 04/02/20 07:24 Active Medications Albuterol Sulfate (Ventolin Hfa Inhaler -) 2 puff IH Q6H PRN PRN Reason: SHORT OF BREATH/WHEEZING Amitriptyline HCl (Elavil -) 10 mg PO DAILY [facility] Last Admin: 04/02/20 09:39 Dose: 10 mg Documented by: Dexamethasone (Decadron -) 1 mg PO HS [facility] Last Admin: 04/01/20 21:56 Dose: 1 mg Documented by: Gabapentin (Neurontin -) 300 mg PO BID [facility] Last Admin: 04/02/20 09:37 Dose: 300 mg Documented by: Heparin Sodium (Porcine) (Heparin -) 5,000 unit SQ BID [facility] Last Admin: 04/02/20 09:37 Dose: 5,000 unit Documented by: Ceftriaxone Sodium 2 gm/ (Dextrose) 100 mls @ 100 mls/hr IVPB DAILY [facility]; Protocol Last Admin: 04/02/20 09:36 Dose: 100 mls/hr Documented by: Metronidazole (Flagyl 500mg Premixed Ivpb -) 500 mg in 100 mls @ 100 mls/hr IVPB Q8H-IV [facility] Last Admin: 04/02/20 09:36 Dose: 100 mls/hr Documented by: Sodium Chloride (Normal Saline -) 1,000 mls @ 75 mls/hr IV ASDIR [facility] Last Admin: 04/01/20 15:57 Dose: Not Given Documented by: Insulin Aspart (Novolog Vial Sliding Scale -) 1 vial SQ TIDAC [facility]; Protocol Last Admin: 04/02/20 06:08 Dose: 2 units Documented by: A/P Acute Diverticulitis COPD Pleural Calcifications likely from prior Asbestos exposure Adrenal Mass DM Anemia - continue antibiotics - PO as tolerated - outpt PFTs and f/u imaging - DVT prophylaxis
--- NOTE | 2020-04-02 10:09 | PN ---
Progress Note (short form) - Note Progress Note: GENERAL SURGERY Currently sitting in chair at bedside. Tolerating PO liquids. Passing flatus. Having BMs. Voiding spontaneously. Last Vital Signs Temp Pulse Resp BP Pulse Ox 97.8 F 89 20 136/51 L 89 L 04/02/20 07:00 04/02/20 07:00 04/02/20 07:00 04/02/20 07:00 04/02/20 07:00 CBC, BMP 04/02/20 07:24 04/02/20 07:24 GEN:nad PULM: unlabored respirations on room air ABD: soft. nt. nd. LE: all compartments soft/nt A/P: 84 yo male admitted 03/29/2020 from his PCP's office for elevated blood sugar (400s with normal anion gap), leukocytosis and weight loss. While in the ED he had an ABD CT which identified acute sigmoid diverticulitis with an associated peripherally enhancing fluid component that may represent an abscess formation. no evidence of perforation. fatty atrophy of pancreas, and a 1.35cm Left adrenal mass. 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 Reyes and agrees <Mario Argueta P - Last Filed: 04/02/20 10:09> - Note Progress Note: Attending Surgeon: I personally saw and examined the patient. My examination reveals a patient with diverticulitis. I discussed the case with the surgical PA and agree with their findings and plan of care with any exceptions as noted. ~ Kareem Reyes MD, FACS <Kareem Reyes - Last Filed: 04/02/20 17:13> Problem List - Problems (1) Abscess of sigmoid colon due to diverticulitis Code(s): K57.20 - DVTRCLI OF LG INT W PERFORATION AND ABSCESS W/O BLEEDING (2) Left adrenal mass Code(s): E27.8 - OTHER SPECIFIED DISORDERS OF ADRENAL GLAND (3) Diabetes Code(s): E11.9 - TYPE 2 DIABETES MELLITUS WITHOUT COMPLICATIONS (4) Lumbar spondylosis Code(s): M47.816 - SPONDYLOSIS W/O MYELOPATHY OR RADICULOPATHY, LUMBAR REGION (5) Lumbar degenerative disc disease Code(s): M51.36 - OTHER INTERVERTEBRAL DISC DEGENERATION, LUMBAR REGION (6) Chronic low back pain Code(s): M54.5 - LOW BACK PAIN; G89.29 - OTHER CHRONIC PAIN <Mario Argueta P - Last Filed: 04/02/20 10:09>
--- NOTE | 2020-04-02 11:54 | PN ---
Physical Exam: SUBJECTIVE: Patient seen and examined sitting on edge of bed. OBJECTIVE: Vital Signs Period Temp Pulse Resp BP Sys/Hoskins Pulse Ox Last 24 Hr 97.5 F-98.1 F 66-89 20-20 121-136/40-58 89-95 GENERAL: The patient is awake, alert, and fully oriented, in no acute distress. LUNGS: Breath sounds equal, clear to auscultation bilaterally, no wheezes, no crackles, no accessory muscle use. HEART: Regular rate and rhythm, S1, S2 ABDOMEN: Soft, nontender, nondistended EXTREMITIES: 2+ pulses, warm, well-perfused, no edema. NEUROLOGICAL: Cranial nerves II through XII grossly intact. Normal speech, gait not observed. Laboratory Results - last 24 hr 04/01/20 04/01/20 04/01/20 12:23 15:54 22:01 WBC RBC Hgb Hct MCV MCH MCHC RDW Plt Count MPV Absolute Neuts (auto) Neutrophils % Lymphocytes % Monocytes % Eosinophils % Basophils % Nucleated RBC % Sodium Potassium Chloride Carbon Dioxide Anion Gap BUN Creatinine Est GFR (CKD-EPI)AfAm Est GFR (CKD-EPI)NonAf POC Glucometer 130 301 186 Random Glucose Calcium Magnesium Total Bilirubin AST ALT Alkaline Phosphatase C-Reactive Protein Total Protein Albumin 04/02/20 04/02/20 04/02/20 06:06 07:24 07:24 WBC 7.3 RBC 3.56 L Hgb 10.7 L Hct 33.3 L MCV 93.3 MCH 30.1 MCHC 32.3 RDW 14.3 Plt Count 386 MPV 10.2 Absolute Neuts (auto) 5.3 Neutrophils % 73.1 Lymphocytes % 19.6 Monocytes % 5.9 Eosinophils % 0.7 Basophils % 0.7 Nucleated RBC % 0 Sodium 140 Potassium 4.5 Chloride 108 H Carbon Dioxide 23 Anion Gap 10 BUN 9.3 Creatinine 1.0 Est GFR (CKD-EPI)AfAm 79.75 Est GFR (CKD-EPI)NonAf 68.81 POC Glucometer 189 Random Glucose 195 H Calcium 8.2 L Magnesium 2.1 Total Bilirubin 0.3 AST 33 ALT 30 Alkaline Phosphatase 58 C-Reactive Protein 2.5 H Total Protein 7.1 Albumin 2.6 L Active Medications Generic Name Dose Route Start Last Admin Trade Name Freq PRN Reason Stop Dose Admin Albuterol Sulfate 2 puff 03/29/20 03:29 Ventolin Hfa Inhaler - IH Q6H PRN SHORT OF BREATH/WHEEZING Amitriptyline HCl 10 mg 03/30/20 10:00 04/02/20 09:39 Elavil - PO 10 mg DAILY [facility] Administration Dexamethasone 1 mg 03/29/20 22:00 04/01/20 21:56 Decadron - PO 1 mg HS [facility] Administration Gabapentin 300 mg 03/29/20 22:00 04/02/20 09:37 Neurontin - PO 300 mg BID [facility] Administration Heparin Sodium (Porcine) 5,000 unit 03/29/20 22:00 04/02/20 09:37 Heparin - SQ 5,000 unit BID [facility] Administration Ceftriaxone Sodium 2 gm/ 100 mls @ 100 mls/hr 03/29/20 10:30 04/02/20 09:36 Dextrose IVPB 100 mls/hr DAILY [facility] Administration Protocol Metronidazole 500 mg in 100 mls @ 100 mls/hr 03/29/20 10:30 04/02/20 09:36 Flagyl 500mg Premixed Ivpb - IVPB 100 mls/hr Q8H-IV [facility] Administration Sodium Chloride 1,000 mls @ 75 mls/hr 03/30/20 13:45 04/01/20 15:57 Normal Saline - IV Not Given ASDIR STAR Insulin Aspart 1 vial 03/29/20 17:00 04/02/20 06:08 Novolog Vial Sliding Scale - SQ 2 units TIDAC STAR Administration Protocol ASSESSMENT/PLAN 84 year-old male with a PMH signifiant for Type II NIDDM and GERD. Admitted for acute sigmoid diverticulitis with possible abscess. Acute sigmoid diverticulitis --03/28 CTAP: distal sigmoid diverticulitis with possible abscess --continue ceftriaxone (day #5), metronidazole (day #5) --surgery following --repeat CT on 04/04 COPD Bilateral pleural calcifications --seen and evaluated by pulmonary --outpatient workup, chest CT and PFTs Type II NIDDM --HgbA1C 10.5 --Novolog sliding scale coverage Hyperglycemia --likely due to infection, sugars improved GERD --not on PPI at home; contraindicated in elderly Left adrenal mass --seen on 03/28 CT, 1.4cm slightly increased since previous study --seen and evaluated by endocrine, ordered dexamethasone suppression test, morning cortisol on 03/30 wnl --outpatient f/u FEN Fluids: NS@75mL/hr Electrolytes: replete as indicated Nutrition: clears DVT prophylaxis: subq heparin Physical therapy Dispo: continues to require inpatient care. Full code. Visit type - Emergency Visit Emergency Visit: Yes ED Registration Date: 03/29/20 Care time: The patient presented to the Emergency Department on the above date and was hospitalized for further evaluation of their emergent condition. - New Patient This patient is new to me today: Yes Date on this admission: 04/03/20 - Critical Care Critical Care patient: No - Medication Review Med list reviewed for High Risk Meds patients 65 and older: Yes
[2020-04-02] MEDS: SODIUM CHLORIDE 1,000 ML IV SCH (17:55)
[2020-04-02] MEDS: DEXAMETHASONE 0.5 MG TABLET PO SCH (22:57)
[2020-04-03] MEDS: INSULIN SLIDING SCALE (NOVOLOG) 1 VIAL SQ SCH ×3 (06:31→17:29)
--- NOTE | 2020-04-03 07:57 | PN ---
Progress Note, Physician History of Present Illness: PULMONARY ALERT,COMFORTABLE OOB-CHAIR,-SOB,-COUGH, ABD DISCOMFORT IMPROVING - Current Medication List Current Medications: Active Medications Albuterol Sulfate (Ventolin Hfa Inhaler -) 2 puff IH Q6H PRN PRN Reason: SHORT OF BREATH/WHEEZING Amitriptyline HCl (Elavil -) 10 mg PO DAILY [facility] Last Admin: 04/02/20 09:39 Dose: 10 mg Documented by: Dexamethasone (Decadron -) 1 mg PO HS [facility] Last Admin: 04/02/20 22:57 Dose: 1 mg Documented by: Gabapentin (Neurontin -) 300 mg PO BID [facility] Last Admin: 04/02/20 22:57 Dose: 300 mg Documented by: Heparin Sodium (Porcine) (Heparin -) 5,000 unit SQ BID [facility] Last Admin: 04/02/20 22:56 Dose: 5,000 unit Documented by: Ceftriaxone Sodium 2 gm/ (Dextrose) 100 mls @ 100 mls/hr IVPB DAILY [facility]; Protocol Last Admin: 04/02/20 09:36 Dose: 100 mls/hr Documented by: Metronidazole (Flagyl 500mg Premixed Ivpb -) 500 mg in 100 mls @ 100 mls/hr IVPB Q8H-IV [facility] Last Admin: 04/03/20 01:00 Dose: 100 mls/hr Documented by: Sodium Chloride (Normal Saline -) 1,000 mls @ 75 mls/hr IV ASDIR [facility] Last Admin: 04/02/20 17:55 Dose: 75 mls/hr Documented by: Insulin Aspart (Novolog Vial Sliding Scale -) 1 vial SQ TIDAC [facility]; Protocol Last Admin: 04/03/20 06:31 Dose: 2 units Documented by: - Objective Vital Signs: Vital Signs Temperature 98.4 F 04/03/20 06:00 Pulse Rate 75 04/03/20 06:00 Respiratory Rate 18 04/03/20 06:00 Blood Pressure 110/53 L 04/03/20 06:00 O2 Sat by Pulse Oximetry (%) 93 L 04/03/20 06:00 Constitutional: Yes: Well Nourished, Calm Eyes: Yes: WNL HENT: Yes: WNL Neck: Yes: WNL Cardiovascular: Yes: Regular Rate and Rhythm, S1, S2 Respiratory: Yes: Rales (BIBASILAR CRACKLES) Gastrointestinal: Yes: Normal Bowel Sounds, Soft Extremities: Yes: WNL Edema: No Labs: CBC, BMP Problem List - Problems (1) Ground glass opacity present on imaging of lung Code(s): R91.8 - OTHER NONSPECIFIC ABNORMAL FINDING OF LUNG FIELD (2) Abscess of sigmoid colon due to diverticulitis Code(s): K57.20 - DVTRCLI OF LG INT W PERFORATION AND ABSCESS W/O BLEEDING (3) Diabetes Code(s): E11.9 - TYPE 2 DIABETES MELLITUS WITHOUT COMPLICATIONS (4) Diverticulitis Code(s): K57.92 - DVTRCLI OF INTEST, PART UNSP, W/O PERF OR ABSCESS W/O BLEED (5) Left adrenal mass Code(s): E27.8 - OTHER SPECIFIED DISORDERS OF ADRENAL GLAND (6) Pleural calcification Code(s): J94.8 - OTHER SPECIFIED PLEURAL CONDITIONS Assessment/Plan IMP ABDOMINAL PAIN SECONDARY ACUTE SIGMOID DIVERTICULITIS,?ABSCESS GGO RLL ? CHRONIC,?INFECTIOUS BILATERAL PLEURAL CALCIFICATIONS LIKELY ASBESTOS PLEURAL DISEASE COPD DM LEFT ADRENAL MASS ?MALIGNANT ANEMIA WT LOSS PLAN SUPPLEMENTAL O2 INHALED BRONCHODILATORS ABX PER ID ? DRAINAGE ABSCESS ? ADRENAL BX F/U CHEST CT OUTPATIENT PFTS OUTPATIENT DR VARGAS Problem List - Problems (1) Ground glass opacity present on imaging of lung Code(s): R91.8 - OTHER NONSPECIFIC ABNORMAL FINDING OF LUNG FIELD (2) Abscess of sigmoid colon due to diverticulitis Code(s): K57.20 - DVTRCLI OF LG INT W PERFORATION AND ABSCESS W/O BLEEDING (3) Diabetes Code(s): E11.9 - TYPE 2 DIABETES MELLITUS WITHOUT COMPLICATIONS (4) Diverticulitis Code(s): K57.92 - DVTRCLI OF INTEST, PART UNSP, W/O PERF OR ABSCESS W/O BLEED (5) Left adrenal mass Code(s): E27.8 - OTHER SPECIFIED DISORDERS OF ADRENAL GLAND (6) Pleural calcification Code(s): J94.8 - OTHER SPECIFIED PLEURAL CONDITIONS
[2020-04-03] MEDS ORDERED: DEXTROSE 5%-WATER 100 ML IVPB ONE (09:12)
[2020-04-03] MEDS: CEFTRIAXONE 2 GM in DEXTROSE 5%-WATER 100 ML IVPB SCH (09:34)
[2020-04-03] MEDS: HEPARIN NA (PORCINE) 5,000 UNITS/ML 1ML VIAL SQ SCH ×2 (09:35→21:36)
[2020-04-03] MEDS: GABAPENTIN 300 MG CAPSULE PO SCH ×2 (09:35→21:36)
[2020-04-03] MEDS: AMITRIPTYLINE HCL 10 MG TABLET PO SCH (09:35)
[2020-04-03] MEDS: SODIUM CHLORIDE 1,000 ML IV SCH ×2 (09:35→14:52)
--- NOTE | 2020-04-03 09:46 | PN ---
Progress Note (short form) - Note Progress Note: GENERAL SURGERY Pt states feeling well denies abd pain, n/v, fever, chills. Tolerating PO liquids. Passing flatus. Having BMs. Voiding spontaneously. Last Vital Signs Temp Pulse Resp BP Pulse Ox 98.4 F 75 18 110/53 L 93 L 04/03/20 06:00 04/03/20 06:00 04/03/20 06:00 04/03/20 06:00 04/03/20 06:00 CBC, BMP 04/02/20 07:24 04/02/20 07:24 GEN:nad PULM: unlabored respirations on room air ABD: soft. nt. nd. LE: all compartments soft/nt A/P: 84 yo male admitted 03/29/2020 from his PCP's office for elevated blood sugar (400s with normal anion gap), leukocytosis and weight loss. While in the ED he had an ABD CT which identified acute sigmoid diverticulitis with an associated peripherally enhancing fluid component that may represent an abscess formation. no evidence of perforation. fatty atrophy of pancreas, and a 1.35cm Left adrenal mass. -pt appears to be doing well, will adv to diabetic diet -Cont medical management -Repeat ABD CT ordered for 04/04/2020 (comparative study) -Above plan discussed with Dr. Reyes and agrees <Sacha Cooper - Last Filed: 04/03/20 09:44> - Note Progress Note: Attending Surgeon: I personally saw and examined the patient. My examination reveals a patient with diverticulitis. I discussed the case with the surgical PA and agree with their findings and plan of care with any exceptions as noted. ~ Kareem Reyes MD, FACS <Kareem Reyes - Last Filed: 04/16/20 08:19>
[2020-04-03 11:22] LABS: BASO % 0.9 % (0-2.0); EOS % 1.5 % (0-4.5); HEMATOCRIT 35.4 % (35.4-49); HEMOGLOBIN 11.5 GM/dL (11.7-16.9); MCH 30.6 pg (25.7-33.7); MCHC 32.4 g/dl (32.0-35.9); MEAN CELL VOLUME 94.7 fl (80-96); MEAN PLT VOLUME 10.6 fl (7.5-11.1); MONO % 5.4 % (3.8-10.2); NEUT % 67.2 % (42.8-82.8); PLATELET COUNT 425 K/MM3 (134-434); RBC 3.74 M/mm3 (4.00-5.60); RDW 14.2 % (11.9-15.9); WHITE BLOOD COUNT 9.1 K/mm3 (4.0-10.0)
[2020-04-03 12:15] LABS: ALBUMIN 2.8 g/dl (3.4-5.0); BILIRUBIN,TOTAL 0.4 mg/dL (0.2-1); BLOOD UREA NITROGEN 6.9 mg/dL (7-18); CALCIUM 8.1 mg/dL (8.5-10.1); CREATININE 1.1 mg/dL (0.55-1.3); TOT PROT 7.6 g/dl (6.4-8.2)
--- NOTE | 2020-04-03 18:15 | PN ---
Physical Exam: SUBJECTIVE: Patient seen and examined oob. Feeling well, feels ready to go home. OBJECTIVE: Vital Signs Period Temp Pulse Resp BP Sys/Hoskins Pulse Ox Last 24 Hr 97.4 F-98.4 F 55-92 18-18 104-140/53-85 91-97 GENERAL: The patient is awake, alert, and fully oriented, in no acute distress. LUNGS: Breath sounds equal, clear to auscultation bilaterally, no wheezes, no crackles, no accessory muscle use. HEART: Regular rate and rhythm, S1, S2 ABDOMEN: Soft, nontender, nondistended EXTREMITIES: 2+ pulses, warm, well-perfused, no edema. NEUROLOGICAL: Cranial nerves II through XII grossly intact. Normal speech, gait not observed. Laboratory Results - last 24 hr 03/30/20 04/02/20 04/03/20 07:43 21:35 06:27 WBC RBC Hgb Hct MCV MCH MCHC RDW Plt Count MPV Absolute Neuts (auto) Neutrophils % Lymphocytes % Monocytes % Eosinophils % Basophils % Nucleated RBC % Sodium Potassium Chloride Carbon Dioxide Anion Gap BUN Creatinine Est GFR (CKD-EPI)AfAm Est GFR (CKD-EPI)NonAf POC Glucometer 148 172 Random Glucose Calcium Magnesium Total Bilirubin AST ALT Alkaline Phosphatase Total Protein Albumin Cortisol AM Sample 8.8 04/03/20 04/03/20 04/03/20 09:45 09:45 11:56 WBC 9.1 RBC 3.74 L Hgb 11.5 L Hct 35.4 MCV 94.7 MCH 30.6 MCHC 32.4 RDW 14.2 Plt Count 425 MPV 10.6 Absolute Neuts (auto) 6.1 Neutrophils % 67.2 Lymphocytes % 25.0 D Monocytes % 5.4 Eosinophils % 1.5 D Basophils % 0.9 Nucleated RBC % 0 Sodium 139 Potassium 4.0 Chloride 106 Carbon Dioxide 22 Anion Gap 12 BUN 6.9 L Creatinine 1.1 Est GFR (CKD-EPI)AfAm 71.07 Est GFR (CKD-EPI)NonAf 61.32 POC Glucometer 140 Random Glucose 138 H Calcium 8.1 L Magnesium 2.0 Total Bilirubin 0.4 AST 51 H ALT 40 Alkaline Phosphatase 60 Total Protein 7.6 Albumin 2.8 L Cortisol AM Sample 04/03/20 16:57 WBC RBC Hgb Hct MCV MCH MCHC RDW Plt Count MPV Absolute Neuts (auto) Neutrophils % Lymphocytes % Monocytes % Eosinophils % Basophils % Nucleated RBC % Sodium Potassium Chloride Carbon Dioxide Anion Gap BUN Creatinine Est GFR (CKD-EPI)AfAm Est GFR (CKD-EPI)NonAf POC Glucometer 232 Random Glucose Calcium Magnesium Total Bilirubin AST ALT Alkaline Phosphatase Total Protein Albumin Cortisol AM Sample Active Medications Generic Name Dose Route Start Last Admin Trade Name Freq PRN Reason Stop Dose Admin Albuterol Sulfate 2 puff 03/29/20 03:29 Ventolin Hfa Inhaler - IH Q6H PRN SHORT OF BREATH/WHEEZING Amitriptyline HCl 10 mg 03/30/20 10:00 04/03/20 09:35 Elavil - PO 10 mg DAILY [facility] Administration Dexamethasone 1 mg 03/29/20 22:00 04/02/20 22:57 Decadron - PO 1 mg HS [facility] Administration Gabapentin 300 mg 03/29/20 22:00 04/03/20 09:35 Neurontin - PO 300 mg BID [facility] Administration Heparin Sodium (Porcine) 5,000 unit 03/29/20 22:00 04/03/20 09:35 Heparin - SQ 5,000 unit BID [facility] Administration Ceftriaxone Sodium 2 gm/ 100 mls @ 100 mls/hr 03/29/20 10:30 04/03/20 09:34 Dextrose IVPB 100 mls/hr DAILY [facility] Administration Protocol Metronidazole 500 mg in 100 mls @ 100 mls/hr 03/29/20 10:30 04/03/20 17:30 Flagyl 500mg Premixed Ivpb - IVPB 100 mls/hr Q8H-IV [facility] Administration Sodium Chloride 1,000 mls @ 75 mls/hr 03/30/20 13:45 04/03/20 14:52 Normal Saline - IV Not Given ASDIR [facility] Insulin Aspart 1 vial 03/29/20 17:00 04/03/20 17:29 Novolog Vial Sliding Scale - SQ 6 units TIDAC [facility] Administration Protocol ASSESSMENT/PLAN 84 year-old male with a PMH signifiant for Type II NIDDM and GERD. Admitted for acute sigmoid diverticulitis with possible abscess. Acute sigmoid diverticulitis --03/28 CTAP: distal sigmoid diverticulitis with possible abscess --continue ceftriaxone (day #6), metronidazole (day #6) --surgery following --repeat CT today, improved, no abscess COPD Bilateral pleural calcifications --seen and evaluated by pulmonary --outpatient workup, chest CT and PFTs Type II NIDDM --HgbA1C 10.5 --Novolog sliding scale coverage Hyperglycemia --likely due to infection, sugars improved GERD --not on PPI at home; contraindicated in elderly Left adrenal mass --seen on 03/28 CT, 1.4cm slightly increased since previous study --seen and evaluated by endocrine, ordered dexamethasone suppression test, morning cortisol on 03/30 wnl --outpatient f/u FEN Fluids: PO intake adequate Electrolytes: replete as indicated Nutrition: diabetic DVT prophylaxis: subq heparin Physical therapy Dispo: continues to require inpatient care. Full code. Visit type - Emergency Visit Emergency Visit: Yes ED Registration Date: 03/29/20 Care time: The patient presented to the Emergency Department on the above date and was hospitalized for further evaluation of their emergent condition. - New Patient This patient is new to me today: No - Critical Care Critical Care patient: No - Medication Review Med list reviewed for High Risk Meds patients 65 and older: Yes
[2020-04-03] MEDS: DEXAMETHASONE 0.5 MG TABLET PO SCH (21:36)
[2020-04-04] MEDS: INSULIN SLIDING SCALE (NOVOLOG) 1 VIAL SQ SCH ×3 (06:35→15:52)
[2020-04-04] MEDS ORDERED: DEXTROSE 5%-WATER 100 ML IVPB ONE (09:04)
[2020-04-04] MEDS ORDERED: PT OWN MED DRAWER 7, Y5N ONE (09:04)
[2020-04-04] MEDS: GABAPENTIN 300 MG CAPSULE PO SCH (09:08)
[2020-04-04] MEDS: HEPARIN NA (PORCINE) 5,000 UNITS/ML 1ML VIAL SQ SCH (09:08)
[2020-04-04] MEDS: AMITRIPTYLINE HCL 10 MG TABLET PO SCH (09:09)
--- NOTE | 2020-04-04 09:34 | PN ---
Progress Note (short form) - Note Progress Note: Surgery: Pt seen and examined this am. No abd pain complaints. Tolerated a diet yesterday and had a solid bowel movement. Vital Signs Period Temp Pulse Resp BP Sys/Hoskins Pulse Ox Last 24 Hr 97.4 F-98.5 F 76-103 18-20 104-146/61-81 91-97 GEN: A&0x3, NAD ABD: soft, non-distended, non-tender CBC, BMP 04/03/20 09:45 04/03/20 09:45 Laboratory Tests 03/30/20 04/02/20 04/04/20 12:45 07:24 06:48 C-Reactive Protein 9.0 H 2.5 H 1.3 H A/p: 84 yo male admitted for elevated blood sugar, leukocytosis and weight loss. ABD CT which identified acute sigmoid diverticulitis with an associated peripherally enhancing fluid component. Repeat CT scan 04/03 revealed improvement in sigmoid inflammation without abscess collection Recommend to continue diet as tolerated Plan as per the medical team D/w Dr. Reyes, no surgical issues f/u with GI as outpt <Indigo Nielson - Last Filed: 04/04/20 09:58> - Note Progress Note: Attending Surgeon: I personally saw and examined the patient. My examination reveals a patient with diverticulitis. I discussed the case with the surgical PA and agree with their findings and plan of care with any exceptions as noted. ~ Kareem Reyes MD, FACS <Kareem Reyes - Last Filed: 04/16/20 08:16>
[2020-04-04] MEDS: CEFTRIAXONE 2 GM in DEXTROSE 5%-WATER 100 ML IVPB SCH (10:00)
--- NOTE | 2020-04-04 10:10 | PN ---
Progress Note (short form) - Note Progress Note: PULMONARY Abdominal pain improving. Denies shortness of breath, cough. No fevers. Vital Signs Period Temp Pulse Resp BP Sys/Hoskins Pulse Ox Last 24 Hr 97.4 F-98.5 F 76-103 18-20 104-146/61-81 91-97 Gen: NAD at rest Heart: RRR Lung: decreased breath sounds at the bases Abd: soft, nontender Ext: no edema CBC, BMP 04/03/20 09:45 04/03/20 09:45 Active Medications Albuterol Sulfate (Ventolin Hfa Inhaler -) 2 puff IH Q6H PRN PRN Reason: SHORT OF BREATH/WHEEZING Amitriptyline HCl (Elavil -) 10 mg PO DAILY [facility] Last Admin: 04/04/20 09:09 Dose: 10 mg Documented by: Dexamethasone (Decadron -) 1 mg PO HS STAR Last Admin: 04/03/20 21:36 Dose: 1 mg Documented by: Gabapentin (Neurontin -) 300 mg PO BID STAR Last Admin: 04/04/20 09:08 Dose: 300 mg Documented by: Heparin Sodium (Porcine) (Heparin -) 5,000 unit SQ BID STAR Last Admin: 04/04/20 09:08 Dose: 5,000 unit Documented by: Ceftriaxone Sodium 2 gm/ (Dextrose) 100 mls @ 100 mls/hr IVPB DAILY STAR; Protocol Last Admin: 04/03/20 09:34 Dose: 100 mls/hr Documented by: Metronidazole (Flagyl 500mg Premixed Ivpb -) 500 mg in 100 mls @ 100 mls/hr IVPB Q8H-IV STAR Last Admin: 04/04/20 09:08 Dose: 100 mls/hr Documented by: Insulin Aspart (Novolog Vial Sliding Scale -) 1 vial SQ TIDAC STAR; Protocol Last Admin: 04/04/20 06:35 Dose: 4 units Documented by: A/P Acute Diverticulitis COPD Pleural Calcifications likely from prior Asbestos exposure Adrenal Mass DM Anemia - continue antibiotics - PO as tolerated - outpt PFTs and f/u imaging - DVT prophylaxis
[2020-04-04] MEDS ORDERED: INSULIN (NOVOLOG) ASPART 100 UNITS/ML 10ML VIAL ONE (12:22)
--- NOTE | 2020-04-04 12:50 | DS ---
Physical Exam: SUBJECTIVE: Patient seen and examined OBJECTIVE: Vital Signs Period Temp Pulse Resp BP Sys/Hoskins Pulse Ox Last 24 Hr 97.4 F-98.5 F 76-103 18-20 104-146/61-81 91-97 PHYSICAL EXAM GENERAL: The patient is awake, alert, and fully oriented, in no acute distress. LUNGS: Breath sounds equal, clear to auscultation bilaterally, no wheezes, no crackles, no accessory muscle use. HEART: Regular rate and rhythm, S1, S2 ABDOMEN: Soft, nontender, nondistended EXTREMITIES: 2+ pulses, warm, well-perfused, no edema. NEUROLOGICAL: Cranial nerves II through XII grossly intact. Normal speech, gait not observed. LABS Laboratory Results - last 24 hr 03/30/20 04/03/20 04/04/20 07:43 16:57 06:34 POC Glucometer 232 217 C-Reactive Protein Cortisol AM Sample 8.8 04/04/20 04/04/20 06:48 12:12 POC Glucometer 270 C-Reactive Protein 1.3 H Cortisol AM Sample HOSPITAL COURSE: Date of Admission:03/29/20 Date of Discharge: 04/04/20 84 year-old male with a PMH signifiant for Type II NIDDM and GERD. Admitted for acute sigmoid diverticulitis with possible abscess. Acute sigmoid diverticulitis --03/28 CTAP: distal sigmoid diverticulitis with possible abscess --treated with ceftriaxone and metronidazole x 7 days, repeat CT on 04/03 showed no sign of abscess --tolerating diet, +BMs COPD Bilateral pleural calcifications --seen and evaluated by pulmonary --outpatient workup, chest CT and PFTs Type II NIDDM --HgbA1C 10.5 --Novolog sliding scale coverage Hyperglycemia --likely due to infection, sugars improved GERD --not on PPI at home; contraindicated in elderly Left adrenal mass --seen on 03/28 CT, 1.4cm slightly increased since previous study --seen and evaluated by endocrine, ordered dexamethasone suppression test, morning cortisol on 03/30 wnl --outpatient f/u Minutes to complete discharge: 35 Discharge Summary Problems reviewed: Yes Reason For Visit: ABSCESS OF SIGMOID COLON,HYPERGLYCEMIA,DIVERTICULI Current Active Problems Abscess of sigmoid colon due to diverticulitis (Acute) Chronic low back pain (Acute) Diabetes (Acute) Diverticulitis (Acute) Ground glass opacity present on imaging of lung (Acute) Left adrenal mass (Acute) Lumbar degenerative disc disease (Acute) Lumbar radiculopathy (Acute) Lumbar spondylosis (Acute) Pleural calcification (Acute) Condition: Improved - Instructions Diet, Activity, Other Instructions: Two prescriptions have been sent to your pharmacy, augmentin and metronidazole. Take these medications as directed. It is recommended you follow up with a petrographer. You asked for a recommendation. We have provided contact information for Dr. Long Mon. Please call his office to make an appointment. It is also recommended you follow up with your primary care provider within 2 weeks of your discharge. Advance your diet slowly. Eat only those foods that agree with you. Stay well- hydrated. Return to the emergency department for any new or worsening symptoms. Referrals: Long Mon MD [Staff Physician] - 2 Weeks Rosalino Norris MD [Primary Care Provider] - 2 Weeks Disposition: HOME - Home Medications Comprehensive Discharge Medication List: Ambulatory Orders Amitriptyline HCl [Elavil -] 10 mg PO DAILY 03/29/20 Gabapentin 300 mg PO BID 03/29/20 Glipizide [Glipizide ER] 5 mg PO DAILY 03/29/20 Sitagliptin Phos/Metformin HCl [Janumet Xr 100-1,000 mg Tablet] 1 tab PO DAILY 03/29/20 Amoxicillin/Potassium Clav [Augmentin 875-125 Tablet] 1 each PO BID #8 tablet 04/04/20 Metronidazole 500 mg PO TID #12 tablet 04/04/20 This patient is new to me today: No Emergency Visit: Yes ED Registration Date: 03/29/20 Care time: The patient presented to the Emergency Department on the above date and was hospitalized for further evaluation of their emergent condition. Critical Care patient: No - Discharge Referral Referred to [facility] Med P.C.: No
[2020-04-04 15:26] VITALS: BP 127/55; PULSE 76; TEMP 97.5
== END 2020-04-04 17:24 | disposition home or self-care (01) | DRG 392 ==
LOC: JER 19:36 → JERBED 03-29 01:10 → J8W 03-29 22:02
PROVIDERS: ADMIT Hospitalist; ATTEND Nurse Practitioner Acute Care
DX: K57.20 Diverticulitis of large intestine with perforation and abscess without bleeding (principal); J94.8 Other specified pleural conditions; E27.8 Other specified disorders of adrenal gland; E11.65 Type 2 diabetes mellitus with hyperglycemia; M51.36 Other intervertebral disc degeneration, lumbar region; D72.829 Elevated white blood cell count, unspecified; K21.9 Gastro-esophageal reflux disease without esophagitis; J44.9 Chronic obstructive pulmonary disease, unspecified; D64.9 Anemia, unspecified; R91.8 Other nonspecific abnormal finding of lung field; M47.816 Spondylosis without myelopathy or radiculopathy, lumbar region
CPT/HCPCS: 36415; 71260-TC; 74177-TC; 80053; 81003; 82248; 82533; 82962; 83036; 83690; 83735; 84100; 85025; 85610; 85730; 86140; 87086; 93005; 93010; 97116-GP; 97161-GP; 99285-25; J1644; J8540; Q9967; U0003